=== PATIENT | female | born 2005 | race Caucasian/White ===

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

== ENCOUNTER 2024-12-04 14:43 | Emergency (ER) | payer OTHER, SELFPAY ==
[2024-12-04 15:01] VITALS: BP 104/73; PULSE 110; RESP 18; TEMP 38.4; O2SAT 99
--- NOTE | 2024-12-04 15:22 | ED_ITS ---
HPI - Nausea/Vomiting/Diarrhea General Chief complaint: Nausea/Vomiting/Diarrhea Stated complaint: body and hand pain Time Seen by Provider: 12/04/24 15:10 19-year-old female presents to [facility] complaining of nausea, vomiting and abdominal pain for 2 days. Patient reports having sharp abdominal pain primarily in the middle of her abdomen. Patient also reports having fevers and body aches. Patient says the only thing she has been able to keep down over the last couple days there is some applesauce. Patient says she is unable to keep fluids down. Patient last vomited approximately 5 hours ago. Patient denies any diarrhea and thought she was constipated and took a laxative couple days ago without any bowel movement. Patient denies any urinary symptoms. Patient has not taking kxyk-[id number]-[id number] at home to help with her symptoms. Patient believes she is dehydrated. Related Data Home Medications Medication Instructions Recorded Confirmed Last Taken Type levonorgestrel 14 mcg/24 hr (up to 1 device intrauterine ONCE 03/22/22 07/30/24 Unknown History 3 yrs) 13.5 mg intrauterine device (Erickson) Allergies Allergy/AdvReac Type Severity Reaction Status Date / Time clonazepam AdvReac Intermediate suicidal Verified 12/04/24 15:08 thoughts codeine AdvReac Intermediate Headache Verified 12/04/24 15:08 Penicillins AdvReac Rash Verified 12/04/24 15:08 Review of Systems Review of Systems: CONSTITUTIONAL: Positive for fever and body aches. Negative for chills, sweats. ENT: Denies rhinorrhea, congestion, sore throat, or otalgia. CARDIOVASCULAR: Denies chest pain, palpitations, or edema. RESPIRATORY: Denies cough or dyspnea. GASTROINTESTINAL: Denies bloody stools, diarrhea, hematochezia. Positive for n ausea, vomiting, and constipation. GENITOURINARY: Denies dysuria or hematuria. SKIN: Denies rash or itching. MUSCULOSKELETAL: Denies back pain, joint pain, or myalgia. NEUROLOGIC: Denies headache, numbness, or weakness. PSYCHIATRIC: Denies anxiety or depression. All other systems reviewed are negative, except as documented in HPI. [facility] Past Medical History Medical History ADHD Remove/insert IUD Encounter for screening examination for sexually transmitted disease Encounter for IUD insertion 01/23/19 erickson insertion Depression Anxiety UTI (urinary tract infection) Surgical History Surgical History History of gynecological procedure (03/22/22) Erickson iud removal and insertion Family History Family History Grandparent Breast cancer paternal grandmother Social History Social History Smoking status: Never smoker Alcohol intake: never Substance use: never Substance use type: does not use Do You Feel Safe in your Home?: Yes Lack of Transportation: No Lack of Food: Never True Current Housing: I Have Housing Concerned About Future Housing: No Difficulty Paying Gas/Electric Bills: Decline to Answer Difficulty Paying for Meds: Decline to Answer Currently Unemployed: No Education: High School Diploma/GED Difficulty w/ Childcare or Family Care: No Living arrangements: alone Occupation/Education: occupation Additional occupation/education comments: [employer] Gender identity (if verbalized by the patient): Female Sexual Orientation (if Verbalized by the Patient): Bisexual Exam Narrative: GENERAL: This is a well-nourished, well-developed adult, in no apparent distress. They are ill-appearing, nontoxic appearing. HEAD: normocephalic, atraumatic. EYES: Sclera clear/white. Vision is grossly intact. Conjunctiva normal bilaterally. Extraocular movements intact. EARS: External ears normal, auditory canals clear and without drainage, TMs without erythema or perforation. Hearing grossly intact. NOSE: External nose normal with no obvious nasal discharge, nasal turbinates without redness, no rhinorrhea. THROAT: Mucous membranes moist, posterior pharynx without erythema or exudate. Uvula is midline. NECK: Neck supple, non-tender without lymphadenopathy, masses or thyromegaly. CARDIOVASCULAR: Tachycardic rate and rhythm without murmurs, gallops, or rubs. RESPIRATORY: Clear to auscultation. Breath sounds equal bilaterally. No wheezes, rales, or rhonchi. GASTROINTESTINAL: Abdomen soft, flat, tender to palpation to the lower abdomen. Bowel sounds are active. No hepato-splenomegaly, or palpable masses. Patient is guarding her abdomen. No rebound tenderness. SKIN: warm, Dry, intact with no suspicious lesions or rash, good texture and turgor. NEURO: awake, alert, and oriented to person, place and time. There were no obvious focal neurologic abnormalities. EXTREMITIES: No joint tenderness, effusion, or edema noted. BACK: Nontender without deformity. No CVA tenderness. Course Course Emergency Course: Portions of this record may have been created with voice recognition software Level of Care: Express Care Visit Vital Signs Vital signs: Vital Signs Temperature 101.2 F H 12/04/24 15:01 Pulse Rate 110 H 12/04/24 15:01 Respiratory Rate 18 12/04/24 15:01 Blood Pressure 104/73 12/04/24 15:01 Pulse Oximetry 99 12/04/24 15:01 Temperature 101.2 F H 12/04/24 15:01 Pulse Rate 110 H 12/04/24 15:01 Respiratory Rate 18 12/04/24 15:01 Blood Pressure 104/73 12/04/24 15:01 Pulse Oximetry 99 12/04/24 15:01 Transfer Transfered to: [facility] Transportation: Other (Private vehicle) Transfer rationale: Abdominal pain, fever, nausea, vomiting, higher level care Accepting physician: Dr. Mcnulty MDM - Nausea/Vomiting/Diarrhea MDM Narrative Medical decision making narrative: Given patient's abdominal pain, uncontrolled nausea and vomiting, and fevers is recommended that the patient has sick higher level care in the emergency department for further evaluation and management. Patient is agreeable and would like to go to [facility]. Culture report over to [facility] and spoke with Dr. Mcnulty who is aware of this patient has accepted the patient for transfer. Patient advised to remain NPO and proceed immediately to the emergency department. Patient was given a dose of Zofran prior to leaving to help with nausea and vomiting. Differential Diagnosis Differential diagnosis: Likely gastroenteritis and other (Appendicitis, colitis, peritonitis) Discharge Plan Discharge Clinical Impression: Abdominal pain Qualifiers: Abdominal location: lower abdomen, unspecified Qualified Code(s): R10.30 - Lower abdominal pain, unspecified Nausea & vomiting Qualifiers: Vomiting type: unspecified Qualified Code(s): R11.2 - Nausea with vomiting, unspecified Patient Disposition: Acute Care Hospital Condition: Stable Patient Language: Estonian Prescriptions: No Action Erickson 14 mcg/24 hrs (3 yrs) 13.5 mg intrauterine device 1 device intrauterine ONCE Rx Instructions: as a single dose Follow-up/Referrals: PHYSICIAN,[employer] [Primary Care Provider] - Time of Disposition: 15:22
[2024-12-04] MEDS: ONDANSETRON HCL ODT 4 MG TABLET PO (15:26)
== END 2024-12-04 15:30 | disposition short-term general hospital (02) ==
DX: R10.30 Lower abdominal pain, unspecified (principal); R11.2 Nausea with vomiting, unspecified
CPT/HCPCS: 99213; A9270; G0463

== ENCOUNTER 2024-12-05 19:33 | Inpatient (IN) | payer OTHER, SELFPAY ==
--- NOTE | ~2024-12-05 | CT_ITS ---
CT abdomen pelvis w con Ordering provider: Janette Robertson APRN History: 19 years Female with . abdominal pain, fever . Comparison: None. Technique: CT abdomen and pelvis with IV and without oral contrast. Automated exposure control and it erative reconstruction technique were employed. The dose-length product was 178.61 mGy-cm. 100 mL Omn ipaque 350 was given IV. Findings: VISUALIZED LOWER CHEST: Normal. UPPER ABDOMINAL ORGANS: Liver: Normal. Gallbladder: Normal. Spleen: Normal. Stomach/duodenum: Normal. Pancreas: Normal. Adrenals: Normal. Kidneys: Bilateral hypodensities in the kidneys involving the cortex more on the left side suggestive of pyelonephritis. Clinical correlation advised. PELVIC ORGANS: The bladder is normal. IUD is seen in the uterus. BOWEL AND MESENTERY: Colon: No evidence of diverticulitis.. No evidence of appendicitis. Small Bowel: Normal. No obstruction. Peritoneum/mesentery: No free air or free fluid. No mesenteric lymphadenopathy. RETROPERITONEUM: Normal aorta. No retroperitoneal lymphadenopathy. MUSCULOSKELETAL: Superficial soft tissues: The superficial soft tissues are normal. Bones: Normal spine. IMPRESSION: 1. Bilateral pyelonephritis more on the left side. Follow-up and clinical correlation advised. 2. No evidence of appendicitis, diverticulitis or intestinal obstruction. Reviewed, dictated and finalized at location A. IMPRESSION: 1. Bilateral pyelonephritis more on the left side. Follow-up and clinical iris elation advised. 2. No evidence of appendicitis, diverticulitis or intestinal obstruction.
--- NOTE | ~2024-12-05 | XR_ITS ---
XR chest 2V Ordering provider: Cong Lara MD History: 19 years Female with . n/v/d weakness . Comparison: July 11, 2007 FINDINGS: MEDIASTINUM: The cardiac silhouette is not enlarged. LUNGS: No infiltrates, effusions or pneumothorax. OTHER: No free air under the diaphragm. IMPRESSION: No acute cardiopulmonary pathology. Reviewed, dictated and finalized at location A.
--- OUTSIDE RECORDS SUMMARY | 2024-12-05 19:36 | XMS_ITS | Encounter Summary ---
Author Organization [facility] Address [address] [place] [address] Care Team Providers Care Lathe Setup Operator Name Role Phone Apple Long MD Primary Care Provider Encounter Details Date Type Department Care Team (Late st Contact Info) Description 02/13/2006 Outpatient Historical [facility] [place] [address] [facility] [place] [address] Apple Long MD [address] [phone] Social History Tobacco Use Types Packs/Day Years Used Date Smoking Tobacco: Never Assessed Comments Unknown Sex and Gender Information Value Date Recorded Sex Assigned at Not on file Legal Sex Female 4:32 AM CUT OUT MARKER Gender Identity Not on file Sexual Orientation Not on file documented as of this encounter Plan of Treatment Not on file documented as of this encounter Visit Diagnoses Not on filedocumented in this encounter Care Teams Lathe Setup Operator Relationship Specialty Start Date End Date Apple Long MD PCP - General 04/01/08 documented as of this encounter
--- OUTSIDE RECORDS SUMMARY | 2024-12-05 19:36 | XMS_ITS | Encounter Summary ---
Author Organization [facility] Address [address] [place] [address] Care Team Providers Care Dirt Supervisor Name Role Phone Apple Long MD Primary Care Provider Encounter Details Date Type Department Care Team (Late st Contact Info) Description 07/05/2007 Outpatient Historical [facility] [place] [address] [facility] [place] [place] [address] Apple Long MD [address] [phone] Social History Tobacco Use Types Packs/Day Years Used Date Smoking Tobacco: Never Assessed Comments Unknown Sex and Gender Information Value Date Recorded Sex Assigned at Not on file Legal Sex Female 4:32 AM STORAGE CONSULTANT Gender Identity Not on file Sexual Orientation Not on file documented as of this encounter Plan of Treatment Not on file documented as of this encounter Visit Diagnoses Not on filedocumented in this encounter Care Teams Dirt Supervisor Relationship Specialty Start Date End Date Apple Long MD PCP - General 04/01/08 documented as of this encounter
--- OUTSIDE RECORDS SUMMARY | 2024-12-05 19:36 | XMS_ITS | Encounter Summary ---
Author Organization [facility] Address [address] [place] [address] Care Team Providers Care Aviation Engineer Name Role Phone Apple Long MD Primary Care Provider Encounter Details Date Type Department Care Team (Late st Contact Info) Description 01/11/2008 Outpatient Historical [facility] [place] [address] [facility] [place] [address] Nani Muhammad MD [address] [place] [phone] Social History Tobacco Use Types Packs/Day Years Used Date Smoking Tobacco: Never Assessed Comments Unknown Sex and Gender Information Value Date Recorded Sex Assigned at Not on file Legal Sex Female 4:32 AM COUNTER CUTTER Gender Identity Not on file Sexual Orientation Not on file documented as of this encounter Plan of Treatment Not on file documented as of this encounter Visit Diagnoses Not on filedocumented in this encounter Care Teams Aviation Engineer Relationship Specialty Start Date End Date Apple Long MD PCP - General 04/01/08 documented as of this encounter
--- OUTSIDE RECORDS SUMMARY | 2024-12-05 19:36 | XMS_ITS | Encounter Summary ---
Author Organization [facility] Address [address] [place]: [place] [address] Care Team Providers Care Electrical Engineering Technologist Name Role Phone Apple Long MD Primary Care Provider Encounter Details Date Type Department Care Team (Late st Contact Info) Description 01/11/2008 Outpatient Historical Apple Long MD [address] [phone] Social History Tobacco Use Types Packs/Day Years Used Date Smoking Tobacco: Never Assessed Comments Unknown Sex and Gender Information Value Date Recorded Sex Assigned at Not on file Legal Sex Female 4:32 AM MATERIALS HANDLING EQUIPMENT OPERATOR Gender Identity Not on file Sexual Orientation Not on file documented as of this encounter Plan of Treatment Not on file documented as of this encounter Visit Diagnoses Not on filedocumented in this encounter Care Teams Electrical Engineering Technologist Relationship Specialty Start Date End Date Apple Long MD PCP - General 04/01/08 documented as of this encounter
--- OUTSIDE RECORDS SUMMARY | 2024-12-05 19:36 | XMS_ITS | Encounter Summary ---
Author Organization [facility] Address [address] [place] [address] Care Team Providers Care Pneumatic Tester Mechanic Name Role Phone Apple Long MD Primary Care Provider Encounter Details Date Type Department Care Team (Late st Contact Info) Description 2004 Outpatient Historical [facility] [place] [address] [facility] [place] [address] Apple Long MD [address] [phone] Social History Tobacco Use Types Packs/Day Years Used Date Smoking Tobacco: Never Assessed Comments Unknown Sex and Gender Information Value Date Recorded Sex Assigned at Not on file Legal Sex Female 4:32 AM PIECE CUTTER Gender Identity Not on file Sexual Orientation Not on file documented as of this encounter Plan of Treatment Not on file documented as of this encounter Procedures Procedure Name Priority Date/Time Associated Diagnosis Comments CHG HEPATITIS B VACCINE PED ADOL IM 3 DOSE VFC 2004 12:00 AM PIECE CUTTER documented in this encounter Visit Diagnoses Not on filedocumented in this encounter Care Teams Pneumatic Tester Mechanic Relationship Specialty Start Date End Date Apple Long MD PCP - General 04/01/08 documented as of this encounter
--- OUTSIDE RECORDS SUMMARY | 2024-12-05 19:36 | XMS_ITS | Encounter Summary ---
Author Organization [facility] Address [address] [place] [address] Care Team Providers Care Author Name Role Phone Apple Long MD Primary Care Provider [phone] Encounter Details Date Type Department Care Team (Late st Contact Info) Description 2004 Outpatient Historical [facility] [place] [address] [place] [address] Apple Long MD [address] [phone] Social History Tobacco Use Types Packs/Day Years Used Date Smoking Tobacco: Never Assessed Comments Unknown Sex and Gender Information Value Date Recorded Sex Assigned at Not on file Legal Sex Female 4:32 AM IMMIGRATION ASSOCIATE Gender Identity Not on file Sexual Orientation Not on file documented as of this encounter Plan of Treatment Not on file documented as of this encounter Visit Diagnoses Not on filedocumented in this encounter Care Teams Author Relationship Specialty Start Date End Date Apple Long MD PCP - General 04/01/08 documented as of this encounter
--- OUTSIDE RECORDS SUMMARY | 2024-12-05 19:36 | XMS_ITS | Encounter Summary ---
Author Organization [facility] Address [address] [place] [address] Care Team Providers Care Forestry Farm Laborer Name Role Phone Apple Long MD Primary Care Provider Encounter Details Date Type Department Care Team (Late st Contact Info) Description 07/08/2005 Outpatient Historical [facility] Pediatric[facility] [place] [address] [facility] [place] [address] Apple Long MD [address] [phone] Social History Tobacco Use Types Packs/Day Years Used Date Smoking Tobacco: Never Assessed Comments Unknown Sex and Gender Information Value Date Recorded Sex Assigned at Not on file Legal Sex Female 4:32 AM SUPERVISOR SOLDER MAKING Gender Identity Not on file Sexual Orientation Not on file documented as of this encounter Last Filed Vital Signs Vital Sign Reading Time Taken Comments Blood Pressure - - Pulse - - Temperature - - Respiratory Rate - - Oxygen Saturation - - Inhaled Oxygen Concentration - - Weight 8.845 kg (19 lb 8 oz) 07/08/2005 3:00 PM SUPERVISOR SOLDER MAKING Height 69.2 cm (2' 3.25 ) 07/08/2005 3:00 PM SUPERVISOR SOLDER MAKING Kjdpxe-ags-Agjchi Percentile 86.18% 07/08/2005 3 :00 PM SUPERVISOR SOLDER MAKING Growth Chart: WHO (Girls, 0- 2 years) Head Circumference 455 cm 07/08/2005 3:00 PM SUPERVISOR SOLDER MAKING Head Circumference Percentile 100.00% 07/08/2005 3:00 PM SUPERVISOR SOLDER MAKING Growth Chart: WHO (Girls, 0- 2 years) Body Mass Index 18.46 07/08/2005 3:00 PM SUPERVISOR SOLDER MAKING Body Mass Index Percentile 89.34% 07/08/2005 3:0 0 PM SUPERVISOR SOLDER MAKING Growth Chart: WHO (Girls, 0- 2 years) documented in this encounter Plan of Treatment Not on file documented as of this encounter Procedures Procedure Name Priority Date/Time Associated Diagnosis Comments CHG HEPATITIS B VACCINE PED ADOL IM 3 DOSE VFC 07/08/2005 12:00 AM SUPERVISOR SOLDER MAKING CHG POLIOVIRUS IPV VFC 5 12:00 AM SUPERVISOR SOLDER MAKING CHG INFLUENZA VACCINE SPLIT 6-35 MO PF IM VFC 07/08/2005 12:00 AM SUPERVISOR SOLDER MAKING documented in this encounter Visit Diagnoses Not on filedocumented in this encounter Care Teams Forestry Farm Laborer Relationship Specialty Start Date End Date Apple Long MD PCP - General 04/01/08 documented as of this encounter
--- OUTSIDE RECORDS SUMMARY | 2024-12-05 19:36 | XMS_ITS | Encounter Summary ---
Author Organization [facility] Address [address] [place] [address] Care Team Providers Care Baby Stroller Rental Clerk Name Role Phone Apple Long MD Primary Care Provider Encounter Details Date Type Department Care Team (Late st Contact Info) Description [address] [facility] [place] [address] [facility] [place] [place] [address] Apple Long MD [address] [phone] Social History Tobacco Use Types Packs/Day Years Used Date Smoking Tobacco: Never Assessed Comments Unknown Sex and Gender Information Value Date Recorded Sex Assigned at Not on file Legal Sex Female 4:32 AM LICENSED AND CERTIFIED MIDWIFE Gender Identity Not on file Sexual Orientation Not on file documented as of this encounter Plan of Treatment Not on file documented as of this encounter Visit Diagnoses Not on filedocumented in this encounter Care Teams Baby Stroller Rental Clerk Relationship Specialty Start Date End Date Apple Long MD PCP - General 04/01/08 documented as of this encounter
--- OUTSIDE RECORDS SUMMARY | 2024-12-05 19:36 | XMS_ITS | Encounter Summary ---
Author Organization [facility] Address [address] [place] [address] Care Team Providers Care Cash Poster Name Role Phone Apple Long MD Primary Care Provider [phone] Encounter Details Date Type Department Care Team (Late st Contact Info) Description 01/11/2005 Outpatient Historical [facility] [place] [address] [facility] [place] [place] [address] Apple Long MD [address] [phone] Social History Tobacco Use Types Packs/Day Years Used Date Smoking Tobacco: Never Assessed Comments Unknown Sex and Gender Information Value Date Recorded Sex Assigned at Not on file Legal Sex Female 4:32 AM WELL SERVICE FLOOR WORKER Gender Identity Not on file Sexual Orientation Not on file documented as of this encounter Plan of Treatment Not on file documented as of this encounter Procedures Procedure Name Priority Date/Time Associated Diagnosis Comments CHG POLIOVIRUS IPV VFC 01/11/2005 12:00 AM CDT documented in this encounter Visit Diagnoses Not on filedocumented in this encounter Care Teams Cash Poster Relationship Specialty Start Date End Date Apple Long MD PCP - General 04/01/08 documented as of this encounter
--- OUTSIDE RECORDS SUMMARY | 2024-12-05 19:36 | XMS_ITS | Encounter Summary ---
Author Organization [facility] Address [address] [place] [address] Care Team Providers Care Livestock Agent Name Role Phone Apple Long MD Primary Care Provider Encounter Details Date Type Department Care Team (Late st Contact Info) Description 06/29/2005 Outpatient Historical [facility] [place] [address] [facility] [place] [address] Apple Long MD [address] [phone] Social History Tobacco Use Types Packs/Day Years Used Date Smoking Tobacco: Never Assessed Comments Unknown Sex and Gender Information Value Date Recorded Sex Assigned at Not on file Legal Sex Female 4:32 AM EXTRUDING MACHINE OPERATOR Gender Identity Not on file Sexual Orientation Not on file documented as of this encounter Plan of Treatment Not on file documented as of this encounter Visit Diagnoses Not on filedocumented in this encounter Care Teams Livestock Agent Relationship Specialty Start Date End Date Apple Long MD PCP - General 04/01/08 documented as of this encounter
--- OUTSIDE RECORDS SUMMARY | 2024-12-05 19:36 | XMS_ITS | Encounter Summary ---
Author Organization [facility] Address [address] [place] [address] Care Team Providers Care Engineering Inspection Assistant Name Role Phone Apple Long MD Primary Care Provider Encounter Details Date Type Department Care Team (Late st Contact Info) Description 04/18/2005 Outpatient Historical [facility] [place] [address] [facility] [place] [address] Apple Long MD [address] [phone] Social History Tobacco Use Types Packs/Day Years Used Date Smoking Tobacco: Never Assessed Comments Unknown Sex and Gender Information Value Date Recorded Sex Assigned at Not on file Legal Sex Female 4:32 AM ASSISTED LIVING ADMINISTRATOR Gender Identity Not on file Sexual Orientation Not on file documented as of this encounter Plan of Treatment Not on file documented as of this encounter Visit Diagnoses Not on filedocumented in this encounter Care Teams Engineering Inspection Assistant Relationship Specialty Start Date End Date Apple Long MD PCP - General 04/01/08 documented as of this encounter
--- OUTSIDE RECORDS SUMMARY | 2024-12-05 19:36 | XMS_ITS | Clinical Summary ---
Author Organization [facility] Address [address] [place] [address] Care Team Providers Care Systems Test Technician Name Role Phone Cass Rodriguez MD Primary Care Provider [phone] Dayna Gonzalez MD Unavailable Molly Silverio Unavailable [phone] Source Comments [facility],non-owned Affiliates and Associated Physician Practices is amultiple site organization consisting of ambulatory clinics and hospital sitesin [place], [place], [place] and [place]. This disclosure is being madepursuant to the Care Everywhere program and may not contain all information available regarding this patient. Last updated 18.[facility] Allergies Active Allergy Reactions Criticality Noted Date Comments Codeine Headache 02/22/2023 migranies Penicillins Rash Medium 02/22/2023 Patient has never taken. Family said has bad reactions Medications * This document contains information received from the source organization and may not represent a complete record from that organization. * Be aware that medications may not be up to date on this document. Alwaysverify current medications with the patient. IUD'S IU Active fluticasone propionate (Flonase) 50 MCG/ACT nasal sprayIndication s:Fluid level behind tympanic membrane of both ears Feura Bush 1 (one) spray into each nostril 2 times daily 16 g 04/15/2024 Active buPROPion SR 12hr (Wellbutrin-SR) 100 MG tablet Take 1 (one) tablet by mouth 2 times daily 04/10/2024 Active hydrOXYzine pamoate (Vistaril) 25 MG capsule TAKE 1 CAPSULE BY MOUTH TWICE DAILY NEEDED FOR ANXIETY 03/04/2024 Active naloxone HCl (Narcan) 4 MG/0.1ML nasal spray SPRAY 2 SPRAYS INTO THE NOSE NEEDED FOR OPIOID OVERDOSE 2 Each 11/02/2024 Active Active Problems Problem Noted Date Diagnosed Date Cluster B personality disorder 11/02/2023 WIL (generalized anxiety disorder) 07/06/2023 Moderate episode of recurrent major depressive d isorder 07/06/2023 Recurrent UTI 02/22/2023 Overview (02/22/2023): Every 3-4 months; not always with sex activity; can be with menses, gets better with azo Attention deficit hyperactiv ity disorder (ADHD), predominantly inattentive type 02/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 Questions solicited and answered. 2. Continue with existing conservative treatment program. 3. Medications Prescribed: none 4. Activity Restrictions: none 5. Weightbearing status: No Restrictions Follow up: Telemedicine visit in 3 months Resolved Problems Problem Noted Date Diagnosed Date Resolved Date Left elbow pain 08/30/2018 02/22/2023 Bilateral wrist pain 08/30/2018 024 Elbow injury, left, initial encounter 10/05/2017 02/22/2023 Encounters Date Type Department Care Team Description 11/01/[address] [facility] [address] [place] [address] Suzie Barreto, COVER OPERATOR-GRINDER SET UP OPERATOR THREAD Refill Request from Last 3 Months Immunizations Immunization Administration Dates Next Due INFLUENZA VACCINE, TRIV. (AF LURIA, FLUZONE TRIVALENT; 6MO+) (IIV3) 07/08/2005 DTAP, HISTORIC VACCINE 12/11/2009,2005,03/22/2005,01/11,2004 HEP A PED/ADULT VACCINE 02/20/2019,01/31/2007, HEP B VACCINE 07/08/2005,01/11/2005 HEP B VACCINE, PED/ADOL 03/22/2005,2004 HIB-PRP-T 4 DOSE 02/13/2006, 5,01/11/2005,10/07 Human Papilloma Virus Abram valent Vaccine 08/13/2018,02/07/2018 INFLUENZA VACCINE 04/12/2018 MENINGOCOCCAL ACWY (MCV4P) VAC IM 02/24/2016 MMR VACCINE 12/10/2009,02/13/2006 MMR/VARICELLA 12/11/2009,02/13/2006 Meningococcal ACWY (Menquadfi) Vac IM 05/05/2022 Meningococcal B Recombinant 2 Dose, IM 3,09/22/2022 PNEUMOCOCCAL PCV7 CONJ, PEDS 02/13/2006, 03/22/2005,01/11/2005,10/07 POLIO IPV 07/08/2005 POLIO,HISTORIC VACCINE 12/11/2009,01/11/2005, TDAP, HISTORIC VACCINE 01/06/2023,11/13/2017,09/2015 VARICELLA 12/10/2009,02/13/2006 Family History Medical History Relation Name Comments Other - Cardiac Father irregular he artbeat None Known Maternal Grandfather None Known Maternal Grandmother Migraine Mother None Known Paternal Grandfather Autism Spectrum Disorder Paternal Grandmother Cancer Paternal Grandmother Autism Spectrum Disorder Paternal Uncle None Known Sister Relation Name Status Comments Father Alive Maternal Grandfather Alive Maternal Grandmother Alive Mother Alive Paternal Grandfather Alive Paternal Grandmother Alive Paternal Uncle Alive Sister Alive Social History Tobacco Use Types Packs/Day Years Used Date Smoking Tobacco: Every Day Cigarettes Passive Smoke Exposure: Current Smokeless Tobacco: Never Tobacco Cessation:Ready to Q uit: Not Asked; Counseling Given: Not Answered Alcohol Use Standard Drinks/Week Comments Yes 0 (1 standard drink = 0.6 oz pur e alcohol) socially/ weekly PHQ-2 Answer Date Recorded Patient Health Questionnaire-2 Score 5 12/20/2023 Comments No Sex and Gender Information Value Date Recorded Sex Assigned at Female 02/22/2023 3:48 PM CDT Legal Sex Female 3:43 PM STRETCH BOX TENDER Gender Identity Female 02/22/2023 3:48 PM CDT Sexual Orientation Not on file Last Filed Vital Signs Vital Sign Reading Time Taken Comments Blood Pressure 114/60 07/03/2024 8:50 AM STRETCH BOX TENDER Pulse 74 07/03/2024 8:50 AM STRETCH BOX TENDER Temperature 36.3 C (97.4 F) 07/03/2024 8:50 AM STRETCH BOX TENDER Respiratory Rate 18 07/03/2024 8:50 AM STRETCH BOX TENDER Oxygen Saturation 98% 07/03/2024 8:50 AM STRETCH BOX TENDER Inhaled Oxygen Concentration - - Weight 50.8 kg (112 lb) 07/03/2024 8:50 AM STRETCH BOX TENDER Height 154.9 cm (5' 1 ) 07/03/2024 8:50 AM STRETCH BOX TENDER Body Mass Index 21.16 07/03/2024 8:50 AM STRETCH BOX TENDER Plan of Treatment Health Maintenance Due Date Last Done Comments PNEUMOCOCCAL VACCINE (1 of 1 - PPSV23) 2010 02/13/2006, 03/22/2005, 01/11/2005, Additional history exists HIV SCREENING 2019 COVID-19 VACCINE (2023-2 5 season) 2024 09/19/2021, 01/13/2021, 12/23/2020 DEPRESSION SCREENING 07/24/2024 09/05/2023, 06/12/20 23 CHLAMYDIA/GONORRHEA SCREENING 09/07/2024 09/07/2023 INFLUENZA VACCINE (Season Ended) 2025 04/12/20 18, 07/08/2005 DTAP/TDAP/TD VACCINES (9 - T d or Tdap) 01/06/2033 01/06/2023, 11/13/2017, 02/24/2016, Additional history exists ZOSTER VACCINE (1 of 2) 2054 HEPATITIS B VACCINE Completed 07/08/2005, 03/22/2005, 01/11/2005, Additional history exists HIB VACCINE Completed 02/13/2006, 02/23, 01/11/2005, Additional history exists HPV VACCINE Completed 08/13/2018, 02/07/2018 MENINGOCOCCAL GROUPS A/C/Y/W VACCINE Completed 05/05/2022, 02/24/2016 MENINGOCOCCAL (Group B) VACC INE SHARED DECISION-MAKING Completed 12/13/2022, 09/22/2022 HEPATITIS C SCREENING Completed 06/12/2023 Procedures Procedure Name Priority Date/Time Associated Diagnosis Comments CHLAMYDIA + GC AMPLIFIED PROBE Routine 09/07/2023 1:00 PM STRETCH BOX TENDER Dysuria HEPATITIS C AB W/RFLX TO HCV RNA QN PCR 06/12/2023 3:00 PM STRETCH BOX TENDER Elevated liver enzymes from Last 3 Months or Most Recently Relevant to Health Maintenance Results * CHLAMYDIA + GC AMPLIFIED PROBE (09/07/2023 1:00 PM STRETCH BOX TENDER) Chlamydia RENETTA Urine Negative Negative [facility] INSURANCE BILL GC R[place] Urine Negative Negative [facility] INSURANCE BILL Microbiology ENTIRE VAGINA / Unknown 09/07/2023 1:00 PM STRETCH BOX TENDER 09/07/2023 Narrative Resulting Agency Comment Lab Testing performed at: [address] [id number] Suzie Barreto COVER OPERATOR-GRINDER SET UP OPERATOR THREAD LAB - MICROBIOLOGY ORDER MISSY Final Result [facility] INSURANCE BILL [address] [place] [address] * HEPATITIS C AB W/RFLX TO HCV RNA QN PCR (06/12/2023 3:00 PM STRETCH BOX TENDER) Hepatitis C Antibody NON-REACTI VE NON-REACT [facility] Comment: HCV antibody was non-reactive. There is no laboratory evidence of HCV infection. In most cases, no further action is required. However, if recent HCV exposure is suspected, a test for HCV RNA (test code 28999) is suggested. For additional information please refer to http://education.[employer]/faq/BXD87b0 (This link is being provided for informational/ educational purposes only.) NO COLLECTION DATE RECEIVED. WE HAVE USED THE DATE THE SPECIMEN WAS RECEIVED BY THIS LABORATORY THE COLLECTION DATE. IF THIS IS INCORRECT, PLEASE CONTACT CLIENT SERVICES. PHONE NUMBER: [phone] Test Performed at: [facility] [address] [address] MELISSA QUIROZ MD 06/12/2023 6:4 1 AM STRETCH BOX TENDER us Babak Frost III, MD LAB - CHEMISTRY ORDER MISSY Final Result [facility] [address] [place] [address] from Last 3 Months or Most Recently Relevant to Health Maintenance Insurance CIG Care Teams Systems Test Technician Relationship Specialty Start Date End Date Cass Rodriguez MD [address] [facility] [address] [facility] [place] [address] PCP - General Internal Medicine 02/22/23 Dayna Gonzalez MD [address] [address] [place] [address] Pediatrics 02/22/23 Molly Silverio PA [address] [place] [phone] [phone] (Work) Physician Entertainment Dancer 08/30/19
--- OUTSIDE RECORDS SUMMARY | 2024-12-05 19:36 | XMS_ITS | Encounter Summary ---
Author Organization [facility] Address [address] [place] [address] Care Team Providers Care Space Control Agent Name Role Phone Apple Long MD Primary Care Provider [phone] Encounter Details Date Type Department Care Team (Late st Contact Info) Description 01/11/2005 Outpatient Historical [facility] [place] [address] [facility] [place] [address] Apple Long MD [address] [address] Social History Tobacco Use Types Packs/Day Years Used Date Smoking Tobacco: Never Assessed Comments Unknown Sex and Gender Information Value Date Recorded Sex Assigned at Not on file Legal Sex Female 4:32 AM MANAGER ACTION Gender Identity Not on file Sexual Orientation Not on file documented as of this encounter Plan of Treatment Not on file documented as of this encounter Procedures Procedure Name Priority Date/Time Associated Diagnosis Comments CHG DTAP VACCINE <7 YO IM VFC 01/11/2005 12:00 AM CDT CHG PNEUMOCOCCAL VACCINE <5 YO IM VFC 01/11/2005 12:00 AM CDT CHG HIB PRP-T VACCINE IM 4 DOSE VFC 01/11/2005 12:00 AM CDT documented in this encounter Visit Diagnoses Not on filedocumented in this encounter Care Teams Space Control Agent Relationship Specialty Start Date End Date Apple Long MD PCP - General 04/01/08 documented as of this encounter
--- OUTSIDE RECORDS SUMMARY | 2024-12-05 19:36 | XMS_ITS | Encounter Summary ---
Author Organization [facility] Address [address] [place] [address] Care Team Providers Care Authorization Rep Name Role Phone Apple Long MD Primary Care Provider [phone] Encounter Details Date Type Department Care Team (Late st Contact Info) Description 03/22/2005 Outpatient Historical [facility] Pediatric[facility] [place] [address] [place] [address] Apple Long MD [address] [address] Social History Tobacco Use Types Packs/Day Years Used Date Smoking Tobacco: Never Assessed Comments Unknown Sex and Gender Information Value Date Recorded Sex Assigned at Not on file Legal Sex Female 4:32 AM QUALITY ASSURANCE SUPERVISOR Gender Identity Not on file Sexual Orientation Not on file documented as of this encounter Plan of Treatment Not on file documented as of this encounter Procedures Procedure Name Priority Date/Time Associated Diagnosis Comments CHG PNEUMOCOCCAL VACCINE <5 YO IM VFC 03/22/2005 12:00 AM CDT documented in this encounter Visit Diagnoses Not on filedocumented in this encounter Care Teams Authorization Rep Relationship Specialty Start Date End Date Apple Long MD PCP - General 9/9/08 documented as of this encounter
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
--- OUTSIDE RECORDS SUMMARY | 2024-12-05 19:36 | XMS_ITS | Encounter Summary ---
Author Organization [facility] Address [address] [place] [address] Care Team Providers Care Senior Oracle Dba Name Role Phone Apple Long MD Primary Care Provider [phone] Encounter Details Date Type Department Care Team (Late st Contact Info) Description 02/13/2006 Outpatient Historical [facility] Pediatrics [place] [address] [facility] [place] [address] Apple Long MD [address] [phone] Social History Tobacco Use Types Packs/Day Years Used Date Smoking Tobacco: Never Assessed Comments Unknown Sex and Gender Information Value Date Recorded Sex Assigned at Not on file Legal Sex Female 4:32 AM BABY STROLLER RENTAL CLERK Gender Identity Not on file Sexual Orientation Not on file documented as of this encounter Plan of Treatment Not on file documented as of this encounter Visit Diagnoses Not on filedocumented in this encounter Care Teams Senior Oracle Dba Relationship Specialty Start Date End Date Apple Long MD PCP - General 04/01/08 documented as of this encounter
--- OUTSIDE RECORDS SUMMARY | 2024-12-05 19:36 | XMS_ITS | Encounter Summary ---
Author Organization [facility] Address [address] [place] [address] Care Team Providers Care Technical Services Coordinator Name Role Phone Apple Long MD Primary Care Provider [phone] Encounter Details Date Type Department Care Team (Late st Contact Info) Description 2004 Outpatient Historical [facility] Pediatrics [place] [address] [facility] [place] [address] Apple Long MD [address] [address] Social History Tobacco Use Types Packs/Day Years Used Date Smoking Tobacco: Never Assessed Comments Unknown Sex and Gender Information Value Date Recorded Sex Assigned at Not on file Legal Sex Female 4:32 AM LAND SURVEYOR Gender Identity Not on file Sexual Orientation Not on file documented as of this encounter Plan of Treatment Not on file documented as of this encounter Procedures Procedure Name Priority Date/Time Associated Diagnosis Comments CHG POLIOVIRUS IPV VFC 2004 12:00 AM LAND SURVEYOR documented in this encounter Visit Diagnoses Not on filedocumented in this encounter Care Teams Technical Services Coordinator Relationship Specialty Start Date End Date Apple Long MD PCP - General 04/01/08 documented as of this encounter
--- OUTSIDE RECORDS SUMMARY | 2024-12-05 19:36 | XMS_ITS | Encounter Summary ---
Author Organization [facility] Address [address] [place] [address] Care Team Providers Care Mechanic'S Assistant Name Role Phone Apple Long MD Primary Care Provider [phone] Encounter Details Date Type Department Care Team (Late st Contact Info) Description 2004 Outpatient Historical [facility] Pediatrics [place] [address] [facility] [place] [address] [place] [address] [facility] [address] [place] [address] Social History Tobacco Use Types Packs/Day Years Used Date Smoking Tobacco: Never Assessed Comments Unknown Sex and Gender Information Value Date Recorded Sex Assigned at Not on file Legal Sex Female 4:32 AM PARTS COUNTERPERSON Gender Identity Not on file Sexual Orientation Not on file documented as of this encounter Plan of Treatment Not on file documented as of this encounter Visit Diagnoses Not on filedocumented in this encounter Care Teams Mechanic'S Assistant Relationship Specialty Start Date End Date Apple Long MD PCP - General 04/01/08 documented as of this encounter
--- OUTSIDE RECORDS SUMMARY | 2024-12-05 19:36 | XMS_ITS | Encounter Summary ---
Author Organization [facility] Address [address] [place] [address] Care Team Providers Care Naval Marine Engineer Name Role Phone Apple Long MD Primary Care Provider Encounter Details Date Type Department Care Team (Late st Contact Info) Description 2004 Outpatient Historical [facility] Pediatric[facility] [place] [address] [facility] [place] [address] Apple Long MD [address] [phone] Social History Tobacco Use Types Packs/Day Years Used Date Smoking Tobacco: Never Assessed Comments Unknown Sex and Gender Information Value Date Recorded Sex Assigned at Not on file Legal Sex Female 4:32 AM RUBBER GOODS REPAIRER Gender Identity Not on file Sexual Orientation Not on file documented as of this encounter Plan of Treatment Not on file documented as of this encounter Visit Diagnoses Not on filedocumented in this encounter Care Teams Naval Marine Engineer Relationship Specialty Start Date End Date Apple Long MD PCP - General 04/01/08 documented as of this encounter
--- OUTSIDE RECORDS SUMMARY | 2024-12-05 19:36 | XMS_ITS | Encounter Summary ---
Author Organization [facility] Address [address] [place] [address] Care Team Providers Care Draw Fire Operator Name Role Phone Apple Long MD Primary Care Provider Encounter Details Date Type Department Care Team (Late st Contact Info) Description 07/05/2007 Outpatient Historical [facility] Pediatrics [place] [address] [facility] [place] [address] Apple Long MD [address] [phone] Social History Tobacco Use Types Packs/Day Years Used Date Smoking Tobacco: Never Assessed Comments Unknown Sex and Gender Information Value Date Recorded Sex Assigned at Not on file Legal Sex Female 4:32 AM DIRECTOR RETIREMENT Gender Identity Not on file Sexual Orientation Not on file documented as of this encounter Plan of Treatment Not on file documented as of this encounter Visit Diagnoses Not on filedocumented in this encounter Care Teams Draw Fire Operator Relationship Specialty Start Date End Date Apple Long MD PCP - General 04/01/08 documented as of this encounter
--- OUTSIDE RECORDS SUMMARY | 2024-12-05 19:36 | XMS_ITS | Encounter Summary ---
Author Organization [facility] Address [address] [place] [address] Care Team Providers Care Flagsetter Name Role Phone Apple Long MD Primary Care Provider Encounter Details Date Type Department Care Team (Late st Contact Info) Description 2004 Outpatient Historical [facility] Pediatrics [place] [address] [facility] [place] [address] Apple Long MD [address] [phone] Social History Tobacco Use Types Packs/Day Years Used Date Smoking Tobacco: Never Assessed Comments Unknown Sex and Gender Information Value Date Recorded Sex Assigned at Not on file Legal Sex Female 4:32 AM DIRECTOR PATIENT Gender Identity Not on file Sexual Orientation Not on file documented as of this encounter Plan of Treatment Not on file documented as of this encounter Procedures Procedure Name Priority Date/Time Associated Diagnosis Comments CHG DTAP VACCINE <7 YO IM VFC 2004 12:00 AM DIRECTOR PATIENT CHG PNEUMOCOCCAL VACCINE <5 YO IM VFC 2004 12:00 AM DIRECTOR PATIENT CHG HIB PRP-T VACCINE IM 4 DOSE VFC 2004 12:00 AM DIRECTOR PATIENT documented in this encounter Visit Diagnoses Not on filedocumented in this encounter Care Teams Flagsetter Relationship Specialty Start Date End Date Apple Long MD PCP - General 04/01/08 documented as of this encounter
--- OUTSIDE RECORDS SUMMARY | 2024-12-05 19:36 | XMS_ITS | Encounter Summary ---
Author Organization [facility] Address [address] [place] [address] Care Team Providers Care Ferry Terminal Supervisor Name Role Phone Apple Long MD Primary Care Provider Encounter Details Date Type Department Care Team (Late st Contact Info) Description 06/08/2006 Outpatient Historical [facility] Pediatrics [place] [address] [facility] [place] [address] Apple Long MD [address] [phone] Social History Tobacco Use Types Packs/Day Years Used Date Smoking Tobacco: Never Assessed Comments Unknown Sex and Gender Information Value Date Recorded Sex Assigned at Not on file Legal Sex Female 4:32 AM LAB ANALYST Gender Identity Not on file Sexual Orientation Not on file documented as of this encounter Plan of Treatment Not on file documented as of this encounter Visit Diagnoses Not on filedocumented in this encounter Care Teams Ferry Terminal Supervisor Relationship Specialty Start Date End Date Apple Long MD PCP - General 04/01/08 documented as of this encounter
--- OUTSIDE RECORDS SUMMARY | 2024-12-05 19:36 | XMS_ITS | Encounter Summary ---
Author Organization [facility] Address [address] [place] [address] Care Team Providers Care Credit Analyst Name Role Phone Apple Long MD Primary Care Provider [phone] Encounter Details Date Type Department Care Team (Late st Contact Info) Description 05/07/2007 Outpatient Historical [facility] [place] [address] [facility] [place] [address] Apple Long MD [address] [address] Social History Tobacco Use Types Packs/Day Years Used Date Smoking Tobacco: Never Assessed Comments Unknown Sex and Gender Information Value Date Recorded Sex Assigned at Not on file Legal Sex Female 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 ASSISTANT Gender Identity Not on file Sexual Orientation Not on file documented as of this encounter Last Filed Vital Signs Vital Sign Reading Time Taken Comments Blood Pressure - - Pulse - - Temperature 37.4 C (99.3 F) 05/07/2007 3:05 PM CDT Respiratory Rate - - Oxygen Saturation - - Inhaled Oxygen Concentration - - Weight - - Height - - Body Mass Index - - documented in this encounter Plan of Treatment Not on file documented as of this encounter Visit Diagnoses Not on filedocumented in this encounter Care Teams Credit Analyst Relationship Specialty Start Date End Date Apple Long MD PCP - General 04/01/08 documented as of this encounter
--- OUTSIDE RECORDS SUMMARY | 2024-12-05 19:36 | XMS_ITS | Encounter Summary ---
Author Organization [facility] Address [address] [place] [address] Care Team Providers Care Director Volunteer Services Name Role Phone Apple Long MD Primary Care Provider [phone] Encounter Details Date Type Department Care Team (Late st Contact Info) Description 2004 Outpatient Historical [facility] Pediatric[facility] [place] [address] [facility] [place] [address] Apple Long MD [address] [phone] Social History Tobacco Use Types Packs/Day Years Used Date Smoking Tobacco: Never Assessed Comments Unknown Sex and Gender Information Value Date Recorded Sex Assigned at Not on file Legal Sex Female 4:32 AM RN SCHOOL Gender Identity Not on file Sexual Orientation Not on file documented as of this encounter Plan of Treatment Not on file documented as of this encounter Visit Diagnoses Not on filedocumented in this encounter Care Teams Director Volunteer Services Relationship Specialty Start Date End Date Apple Long MD PCP - General 04/01/08 documented as of this encounter
--- OUTSIDE RECORDS SUMMARY | 2024-12-05 19:36 | XMS_ITS | Encounter Summary ---
Author Organization [facility] Address [address] [place] [address] Care Team Providers Care Appliquer Zigzag Name Role Phone Apple Long MD Primary Care Provider Encounter Details Date Type Department Care Team (Late st Contact Info) Description 03/22/2005 Outpatient Historical [facility] Pediatrics [place] [address] [facility] [place] [address] Apple Long MD [address] [address] Social History Tobacco Use Types Packs/Day Years Used Date Smoking Tobacco: Never Assessed Comments Unknown Sex and Gender Information Value Date Recorded Sex Assigned at Not on file Legal Sex Female 4:32 AM STUCCO APPLICATOR Gender Identity Not on file Sexual Orientation Not on file documented as of this encounter Plan of Treatment Not on file documented as of this encounter Procedures Procedure Name Priority Date/Time Associated Diagnosis Comments CHG HEPATITIS B VACCINE PED ADOL IM 3 DOSE VFC 03/22/2005 12:00 AM CDT CHG DTAP VACCINE <7 YO IM VFC 03/22/2005 12:00 AM CDT CHG HIB PRP-T VACCINE IM 4 DOSE VFC 03/22/2005 12:00 AM CDT documented in this encounter Visit Diagnoses Not on filedocumented in this encounter Care Teams Appliquer Zigzag Relationship Specialty Start Date End Date Apple Long MD PCP - General 04/01/08 documented as of this encounter
--- OUTSIDE RECORDS SUMMARY | 2024-12-05 19:37 | XMS_ITS | Encounter Summary ---
Author Organization [facility] Address [address] [place] [address] Care Team Providers Care General Distillery Worker Name Role Phone Apple Long MD Primary Care Provider Encounter Details Date Type Department Care Team (Late st Contact Info) Description 12/07/2005 Outpatient Historical [facility] Pediatrics [place] [address] [facility] [place] [address] Apple Long MD [address] [phone] Social History Tobacco Use Types Packs/Day Years Used Date Smoking Tobacco: Never Assessed Comments Unknown Sex and Gender Information Value Date Recorded Sex Assigned at Not on file Legal Sex Female 4:32 AM SPEECH AND LANGUAGE SPECIALIST Gender Identity Not on file Sexual Orientation Not on file documented as of this encounter Plan of Treatment Not on file documented as of this encounter Visit Diagnoses Not on filedocumented in this encounter Care Teams General Distillery Worker Relationship Specialty Start Date End Date Apple Long MD PCP - General 04/01/08 documented as of this encounter
--- OUTSIDE RECORDS SUMMARY | 2024-12-05 19:37 | XMS_ITS | Encounter Summary ---
Author Organization [facility] Address [address] [place] [address] Care Team Providers Care Department Chairperson Name Role Phone Apple Long MD Primary Care Provider [phone] Encounter Details Date Type Department Care Team (Late st Contact Info) Description 01/31/2007 Outpatient Historical [facility] Pediatrics [place] [address] [facility] [place] [address] Apple Long MD [address] [phone] Social History Tobacco Use Types Packs/Day Years Used Date Smoking Tobacco: Never Assessed Comments Unknown Sex and Gender Information Value Date Recorded Sex Assigned at Not on file Legal Sex Female 4:32 AM DISCHARGE SPECIALIST Gender Identity Not on file Sexual Orientation Not on file documented as of this encounter Last Filed Vital Signs Vital Sign Reading Time Taken Comments Blood Pressure - - Pulse - - Temperature - - Respiratory Rate - - Oxygen Saturation - - Inhaled Oxygen Concentration - - Weight 11.9 kg (26 lb 2 oz) 01/31/2007 10:30 AM CDT Height 85.7 cm (2' 9.75 ) 01/31/2007 10:30 AM CD T Hisbbp-ify-Jmhfyo Percentile 42.85% 01/31/2007 1 0:30 AM CDT Growth Chart: CDC (Girls, 2- 20 Years) Head Circumference 48.7 cm 01/31/2007 10:30 AM CD T Head Circumference Percentile 65.69% 01/31/2007 10:30 AM CDT Growth Chart: CDC (Girls, 0- 36 Months) Body Mass Index 16.13 01/31/2007 10:30 AM CDT Body Mass Index Percentile 52.29% 01/31/2007 10: 30 AM CDT Growth Chart: [facility] (Girls, 2- 20 Years) documented in this encounter Plan of Treatment Not on file documented as of this encounter Visit Diagnoses Not on filedocumented in this encounter Care Teams Department Chairperson Relationship Specialty Start Date End Date Apple Long MD PCP - General 04/01/08 documented as of this encounter
--- OUTSIDE RECORDS SUMMARY | 2024-12-05 19:37 | XMS_ITS | Encounter Summary ---
Author Organization [facility] Address [address] [place] [address] Care Team Providers Care Head Up Operator Helper Name Role Phone Apple Long MD Primary Care Provider [phone] Encounter Details Date Type Department Care Team (Late st Contact Info) Description 09/08/2005 Outpatient Historical [facility] Pediatrics [place] [address] [facility] [place] [address] Apple Long MD [address] [phone] Social History Tobacco Use Types Packs/Day Years Used Date Smoking Tobacco: Never Assessed Comments Unknown Sex and Gender Information Value Date Recorded Sex Assigned at Not on file Legal Sex Female 4:32 AM BOBBIN CLEANER HAND Gender Identity Not on file Sexual Orientation Not on file documented as of this encounter Plan of Treatment Not on file documented as of this encounter Visit Diagnoses Not on filedocumented in this encounter Care Teams Head Up Operator Helper Relationship Specialty Start Date End Date Apple Long MD PCP - General 04/01/08 documented as of this encounter
--- OUTSIDE RECORDS SUMMARY | 2024-12-05 19:37 | XMS_ITS | Encounter Summary ---
Author Organization [facility] Address [address] [place] [address] Care Team Providers Care Utility Driver Name Role Phone Apple Long MD Primary Care Provider [phone] Encounter Details Date Type Department Care Team (Late st Contact Info) Description 02/02/2006 Outpatient Historical [facility] Pediatrics [place] [address] [facility] [place] [address] Apple Long MD [address] [phone] Social History Tobacco Use Types Packs/Day Years Used Date Smoking Tobacco: Never Assessed Comments Unknown Sex and Gender Information Value Date Recorded Sex Assigned at Not on file Legal Sex Female 4:32 AM TEST DESKMAN Gender Identity Not on file Sexual Orientation Not on file documented as of this encounter Plan of Treatment Not on file documented as of this encounter Visit Diagnoses Not on filedocumented in this encounter Care Teams Utility Driver Relationship Specialty Start Date End Date Apple Long MD PCP - General 04/01/08 documented as of this encounter
--- OUTSIDE RECORDS SUMMARY | 2024-12-05 19:37 | XMS_ITS | Encounter Summary ---
Author Organization [facility] Address [address] [place] [address] Care Team Providers Care Plant Tour Guide Name Role Phone Apple Long MD Primary Care Provider [phone] Encounter Details Date Type Department Care Team (Late st Contact Info) Description 09/26/2005 Outpatient Historical [facility] Pediatrics [place] [address] [facility] [place] [address] Apple Long MD [address] [phone] Social History Tobacco Use Types Packs/Day Years Used Date Smoking Tobacco: Never Assessed Comments Unknown Sex and Gender Information Value Date Recorded Sex Assigned at Not on file Legal Sex Female 4:32 AM CLAY MINER Gender Identity Not on file Sexual Orientation Not on file documented as of this encounter Plan of Treatment Not on file documented as of this encounter Visit Diagnoses Not on filedocumented in this encounter Care Teams Plant Tour Guide Relationship Specialty Start Date End Date Apple Long MD PCP - General 04/01/08 documented as of this encounter
--- OUTSIDE RECORDS SUMMARY | 2024-12-05 19:37 | XMS_ITS | Encounter Summary ---
Author Organization [facility] Address [address] [place] [address] Care Team Providers Care Macaroni Maker Name Role Phone Apple Long MD Primary Care Provider [phone] Encounter Details Date Type Department Care Team (Late st Contact Info) Description 08/19/2006 Orders Only [facility] Pediatrics [place] [address] [facility] [place] [address] Apple Long MD [address] [phone] Social History Tobacco Use Types Packs/Day Years Used Date Smoking Tobacco: Never Assessed Comments Unknown Sex and Gender Information Value Date Recorded Sex Assigned at Not on file Legal Sex Female 4:32 AM CONTINUOUS YARN DYEING MACHINE OPERATOR Gender Identity Not on file Sexual Orientation Not on file documented as of this encounter Progress Notes * Apple Long MD - 12/18/2007 2:20 PM CDT TIME:10:12 am PATIENT`S HOME PHONE: PATIENT`S WORK PHONE: PATIENT`S INSURANCE: WHO TOOK THE CALL: Madisyn Green E * Apple Long MD - 12/18/2007 2:20 PM CDT PATIENT'S AGE: 1 yrs, 0 mths, 1 wk, 2 days VITALS: TEMP: 97.8Â°f Tympanic WEIGHT: 25.1lbs NURSE NAME: Shirley Fernandes M ACCOMPANIED BY: Mother. HISTORY PROVIDED BY: Mother. ALLERGIES: CURRENT ALLERGY LIST: NO KNOWN ALLERGIES MEDICATIONS: [id number], pedialyte CHIEF COMPLAINT: The child is here for evaluation of fever, vomiting, pulling on right ear. since yest, ear symptoms started today. Appetite ok, sleep ok, slept more than usual yesterday. HISTORY: HPI: see cc. Vomited three times last night. Lots of URI symptoms since a week ago. Ear ache began yesterday. REVIEW OF SYSTEMS: ALL NORMAL EXCEPT and are normal except as noted below. PHYSICAL EXAM: CONSTITUTIONAL: GENERAL APPEARANCE: Healthy appearing, alert patient, normally nourished, developmentally normal and in no acute distress. Active in room EYES: CONJUNCTIVA/LIDS: Conjunctivae and lids appear normal. PUPILS: Pupils equal and round. EARS, NOSE, MOUTH AND THROAT: EXTERNAL/EARS AND NOSE: Overall appearance normal without lesions or masses. EARS: BULGING TYMPANIC MEMBRANE NOTED IN THE RIGHT EAR, EFFUSION PRESENT IN THE RIGHT EAR, RIGHT TYMPANIC MEMBRANE INFLAMED. NOSE (AND SINUS): CLEAR NASAL DISCHARGE NOTED BILATERALLY. ORAL: Inspection of gums, lips, palate, and dentition normal. No lesions or masses. Oral mucosa unremarkable with non-inflamed posterior pharynx. NECK: No lymphadenopathy noted. Supple. RESPIRATORY: Clear to auscultation. Normal respiratory effort. CARDIOVASCULAR: CARDIAC: Regular rhythm with no murmurs, rubs, gallops, or abnormal heart sounds. GASTROINTESTINAL: ABDOMEN: Soft, non-tender, without masses. Bowel sound active. LIVER/SPLEEN/KIDNEY: No hepatosplenomegaly. LYMPHATICS: No lymphadenopathy in the neck, axillae, or groin. SKIN: INSPECTION: Good color, no rashes, birthmarks or lesions noted on arms, chest or abdomen. ASSESSMENT/PLAN: 382.00-OTITIS MEDIA ACUTE SUPPURATIVE MEDICATIONS: AMOXICILLIN ORAL SUSPENSION WHEN RECONSTITUTED 250 MG/5ML, 2 tsp po bid ten days, 10 Duration/Days Supply, status: NEW PRESCRIPTION, 08/19/2006. Electronically Signed by: Apple Long MD on Saturday, August 19, 2006 documented in this encounter Plan of Treatment Not on file documented as of this encounter Visit Diagnoses Not on filedocumented in this encounter Care Teams Macaroni Maker Relationship Specialty Start Date End Date Apple Long MD PCP - General 04/01/08 documented as of this encounter
--- OUTSIDE RECORDS SUMMARY | 2024-12-05 19:37 | XMS_ITS | Continuity of Care Document ---
Author Organization [facility] Address [address] [place] [address] Phone Care Team Providers Care Lead Developer Name Role Phone Threronald PT, Jemima Unavailable Unavailable Procedures Procedure Date Neuromuscular Re-Ed Therapeutic Activities Therapeutic Exercise Therapeutic Activities Neuromuscular Re-Ed Therapeutic Exercise Therapeutic Activities Neuromuscular Re-Ed Therapeutic Exercise Therapeutic Activities Neuromuscular Re-Ed Therapeutic Exercise Neuromuscular Re-Ed Therapeutic Activities Therapeutic Exercise Therapeutic Activities Neuromuscular Re-Ed Therapeutic Exercise PT Evaluation Low Complexity Neuromuscular Re-Ed Therapeutic Exercise Advance Directives Directive Yes / No Effective Date File Name No Information Encounters Encounter Description Practice Location Reason(s) For Visit Diagnoses Date Provider Providers Copied on Encounter [facility], [address] [address], [place], [place], [id number], tel:[phone] [place] No Information 0 Della Onofre. . Referring Provider: Anjana Serrano, [address] [place], [address]. tel:[phone] [facility], [address] [facility] [facility] [address], [place], [place], [id number], [place] tel:[phone] [place] No Information Mar-1 2-202 0 Makler Luke. . Referring Provider: Anjana Bhatia Maggie, [address] [place], [address]. tel:[phone] [facility], [address] [facility] [address], [place], [place], [id number], [place] tel:[phone] [place] No Information Mar-0 6-202 0 Threlkeld Jemima. . Referring Provider: Anjana Bhatia Maggie, [address] [place], [address]. tel:[phone] [facility], [address] [address], [place], [place], [id number], tel:[phone] [place] No Information Mar-0 5-202 0 Makler Luke. . Referring Provider: Anjana Bhatia Maggie, [facility] [place], [address]. tel:[phone] [facility], [address] [address], [place], [place], [id number], [place] tel:[phone] [place] No Information b-2 8- 0 Threlkeld Jemima. . Referring Provider: Anjana Bhatia Maggie, [address] [facility], [place], [address]. tel:[phone] [facility], [address] [address], [place], [place], [id number], [place] tel:[phone] [place] No Information b-2 7- 0 Shaheenhoffer Rekha. . Referring Provider: Anjana M Maggie, [address] [place], [address]. tel:[phone] [facility], [address] [facility] [address], [place], [place], [id number], [place] tel:[phone] [place] No Information b- 7-202 0 Threlkeld Jemima. . Referring Provider: Anjana M Maggie, [address] [facility], [place], [address]. tel:[phone] Family History Family Member Type Diagnosis Age At Onset No Information Payers Payer name Insurance type Covered green party ID Authorronaldoa malgorzata(s) [facility] [id number] Social History Type Description Quantity Date Captured Comments Sex Female Smoking Status No Information Chief Complaint And Reason For Visit No Information Reason For Referral Reason For Referral No Information History Of Present Illness Encounter Date Complaint History Of Prese nt Illness No Information Functional Status Date Functional Assessmen t No Information Instructions Date Instruction Additional Infor mation No Information Assessments Type Assessment Date No Information Patient Care Teams Name Effective Dates (start - stop) Status Members No Information
--- OUTSIDE RECORDS SUMMARY | 2024-12-05 19:37 | XMS_ITS | Encounter Summary ---
Author Organization [facility] Address [address] [place] [address] Care Team Providers Care Lead Software Test Engineer Name Role Phone Apple Long MD Primary Care Provider Encounter Details Date Type Department Care Team (Late st Contact Info) Description 09/26/2005 Orders Only [facility] Pediatrics [place] [address] [facility] [place] [address] Apple Long MD [address] [address] Social History Tobacco Use Types Packs/Day Years Used Date Smoking Tobacco: Never Assessed Comments Unknown Sex and Gender Information Value Date Recorded Sex Assigned at Not on file Legal Sex Female 4:32 AM BAR BACK Gender Identity Not on file Sexual Orientation Not on file documented as of this encounter Progress Notes * Apple Long MD - 05/01/2008 5:23 PM CDT PATIENT'S AGE: 1 yr, 1 mth, 2 wks, 4 days VITALS: TEMP: 96.6Â°f Tympanic wt 21 lbs NURSE NAME: Yajaira Whalen C ACCOMPANIED BY: Mother. HISTORY PROVIDED BY: Mother. ALLERGIES: CURRENT ALLERGY LIST: NO KNOWN ALLERGIES MEDICATIONS: Patient is taking no medications at present. CHIEF COMPLAINT: The child is here for evaluation of wheezing, cough, congestion. HISTORY: Per mom, has been wheezing off and on since 09/08/05. Was better on nebs, but since nebs d/c'd- symptoms worsened. No fevers. Playful. Coughing, runny nose, congestion throughout the last month. REVIEW OF SYSTEMS: ALL NORMAL EXCEPT and are normal except as noted below. PHYSICAL EXAM: CONSTITUTIONAL: GENERAL APPEARANCE: Healthy appearing, alert patient, normally nourished, developmentally normal and in no acute distress. EYES: CONJUNCTIVA/LIDS: Conjunctivae and lids appear normal. PUPILS: Pupils equal and round. EARS, NOSE, MOUTH AND THROAT: EXTERNAL/EARS AND NOSE: Overall appearance normal without lesions or masses. EARS: Tympanic membranes shiny without retraction. Canals unremarkable. Hearing grossly normal. NOSE (AND SINUS): CLEAR NASAL DISCHARGE NOTED BILATERALLY. ORAL: Inspection of gums, lips, palate, and dentition normal. No lesions or masses. Oral mucosa unremarkable with non-inflamed posterior pharynx. NECK: No lymphadenopathy noted. Supple. RESPIRATORY: MILD EXPIRATORY WHEEZE WITH FORCED EXPIRATION HEARD THROUGHOUT BOTH LUNG LANDEROS. CARDIOVASCULAR: CARDIAC: Regular rhythm with no murmurs, rubs, gallops, or abnormal heart sounds. GASTROINTESTINAL: ABDOMEN: Soft, non-tender, without masses. Bowel sound active. LIVER/SPLEEN/KIDNEY: No hepatosplenomegaly. SKIN: INSPECTION: Good color, no rashes, birthmarks or lesions noted on arms, chest or abdomen. ASSESSMENT/PLAN: 466.19-BRONCHIOLITIS ACUTE STATUS: New. MEDICATIONS: PULMICORT INHALATION SUSPENSION 0.5 MG/2ML UNITS, one vial into neb qday, 18 Dispensed, 18 samples given, status: NEW PRESCRIPTION, 09/26/2005. ACCUNEB INHALATION NEBULIZATION SOLUTION 0.63 MG/3ML UNITS, one vial into neb q four hrs prn, 6 Dispensed, 6 samples given, status: NEW PRESCRIPTION, 09/26/2005. Electronically Signed by: Apple Long MD on Monday, September 26, 2005 documented in this encounter Plan of Treatment Not on file documented as of this encounter Visit Diagnoses Not on filedocumented in this encounter Care Teams Lead Software Test Engineer Relationship Specialty Start Date End Date Apple Long MD PCP - General 04/01/08 documented as of this encounter
--- OUTSIDE RECORDS SUMMARY | 2024-12-05 19:37 | XMS_ITS | Encounter Summary ---
Author Organization [facility] Address [address] [place] [address] Care Team Providers Care Ruby On Rails Web Developer Name Role Phone Apple Long MD Primary Care Provider [phone] Encounter Details Date Type Department Care Team (Late st Contact Info) Description 12/07/2005 Orders Only [facility] Pediatrics [place] [address] [facility] [place] [address] Rina Park NP NO ADDRESS ON FILE Social History Tobacco Use Types Packs/Day Years Used Date Smoking Tobacco: Never Assessed Comments Unknown Sex and Gender Information Value Date Recorded Sex Assigned at Not on file Legal Sex Female 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
--- OUTSIDE RECORDS SUMMARY | 2024-12-05 19:37 | XMS_ITS | Encounter Summary ---
Author Organization [facility] Address [address] [place] [address] Care Team Providers Care Union Laborer Name Role Phone Apple Long MD Primary Care Provider Encounter Details Date Type Department Care Team (Late st Contact Info) Description 08/19/2006 Outpatient Historical [facility] Pediatrics [place] [address] [facility] [place] [address] Apple Long MD [address] [address] Social History Tobacco Use Types Packs/Day Years Used Date Smoking Tobacco: Never Assessed Comments Unknown Sex and Gender Information Value Date Recorded Sex Assigned at Not on file Legal Sex Female 4:32 AM BEACH LIFEGUARD Gender Identity Not on file Sexual Orientation Not on file documented as of this encounter Last Filed Vital Signs Vital Sign Reading Time Taken Comments Blood Pressure - - Pulse - - Temperature 36.6 C (97.8 F) 08/19/2006 10:45 AM BEACH LIFEGUARD Respiratory Rate - - Oxygen Saturation - - Inhaled Oxygen Concentration - - Weight 11.4 kg (25 lb 1.6 oz) 08/19/2006 10:45 A M BEACH LIFEGUARD Height - - Body Mass Index - - documented in this encounter Plan of Treatment Not on file documented as of this encounter Visit Diagnoses Not on filedocumented in this encounter Care Teams Union Laborer Relationship Specialty Start Date End Date Apple Long MD PCP - General 04/01/08 documented as of this encounter
--- OUTSIDE RECORDS SUMMARY | 2024-12-05 19:37 | XMS_ITS | Encounter Summary ---
Author Organization [facility] Address [address] [place] [address] Care Team Providers Care Visual Merchandising Associate Name Role Phone Apple Long MD Primary Care Provider Encounter Details Date Type Department Care Team (Late st Contact Info) Description 09/08/2005 Orders Only [facility] [place] [address] [facility] [place] [address] Apple Long MD [address] [id number] Social History Tobacco Use Types Packs/Day Years Used Date Smoking Tobacco: Never Assessed Comments Unknown Sex and Gender Information Value Date Recorded Sex Assigned at Not on file 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 HISTORY PROVIDED BY: Mother. ALLERGIES: CURRENT ALLERGY LIST: NO KNOWN ALLERGIES MEDICATIONS: RN/MA reviewed medications.tylenol CHIEF COMPLAINT: The child here for evaluation of congestion, vomiting, fever, cough. HISTORY: HPI: vomiting, diarrhea since 3 days ago. cough began the last 24 hrs. Sounds as if she's having stridor 102 fever in the last 48 hrs. REVIEW OF SYSTEMS: ALL NORMAL EXCEPT and [...] pharynx. NECK: No lymphadenopathy noted. Supple. RESPIRATORY: MODERATE EXPIRATORY WHEEZE HEARD THROUGHOUT BOTH LUNG LANDEROS. rr 60 CARDIOVASCULAR: CARDIAC: Regular rhythm with no murmurs, rubs, gallops, or abnormal heart sounds. GASTROINTESTINAL: ABDOMEN: Soft, non-tender, without masses. Bowel sound active. LIVER/SPLEEN/KIDNEY: No hepatosplenomegaly. SKIN: INSPECTION: Good color, no rashes, birthmarks or lesions noted on arms, chest or abdomen. OFFICE PROCEDURE: Nebulizer treatment administered using 0.63 mg Xoponex. RESPONSE TO TREATMENT #2 Respiratory status showed improvement. ASSESSMENT/PLAN: 466.19-BRONCHIOLITIS ACUTE MEDICATIONS: XOPENEX INHALATION NEBULIZATION SOLUTION 0.63 MG/3ML UNITS, 1 AEROSOL SOLU ONE TIME INHALATION EVERY FOUR TO SIX HOURS PRN, 16 Dispensed, 16 samples given, status: NEW PRESCRIPTION, 09/08/2005. Call with update in am. Electronically Signed by: Apple Long MD on August documented in this encounter Plan of Treatment Not on file documented as of this encounter Visit Diagnoses Not on filedocumented in this encounter Care Teams Visual Merchandising Associate Relationship Specialty Start Date End Date Apple Long MD PCP - General 04/01/08 documented as of this encounter
--- NOTE | 2024-12-05 19:59 | ECG_ITS ---
Test Date: 2024-12-05 20:24:42 Measurements Intervals [place] Rate: 91 P: 7 PA: 114 QRS: 73 QRSD: 86 T: 40 QT: 358 QTc: 442 Interpretive Statements SINUS RHYTHM WITH SINUS ARRHYTHMIA WITH SHORT PA INTERVAL MINIMAL ST DEPRESSION [0.025+ mV ST DEPRESSION] ABNORMAL ECG No previous ECG available for comparison Electronically Signed On 12-06-2024 09:53:18 CDT by Vipin Quinones M.D.
[2024-12-05 20:08] VITALS: BP 95/55; PULSE 113; RESP 20; TEMP 37.9; O2SAT 100
--- NOTE | 2024-12-05 20:45 | ED.NAVMDI ---
HPI - Nausea/Vomiting/Diarrhea General Chief complaint: Nausea/Vomiting/Diarrhea <Janette Robertson APRN - Last Filed: 12/06/24 00:41> Stated complaint: N/V, fever, chills x 2 days-weakness <Janette Robertson APRN - Last Filed: 12/06/24 00:41> Time Seen by Provider: 12/05/24 20:20 <Janette Robertson APRN - Last Filed: 12/06/24 00:41> History of Present Illness HPI Narrative: Patient is a 19-year-old female who presents to the ER with complaints fever, vomiting and lower abdominal pain. She reports symptoms started 2-3 days ago. Patient endorses lower abdominal pain and burning with urination. She reports lately she has been taking laxatives because she thought she was constipated but they have not given her much relief. Patient also endorses of fever that started earlier today. She reports she has a history of addiction and has an IUD. <Janette Robertson APRN - Last Filed: 12/06/24 00:41> Related Data Home medications: Home Medications Medication Instructions Recorded Confirmed Last Taken Type levonorgestrel 14 mcg/24 hr (up to 1 device intrauterine ONCE 03/22/22 07/30/24 Unknown History 3 yrs) 13.5 mg intrauterine device (Aleyda) <Janette Robertson APRN - Last Filed: 12/06/24 00:41> Allergies/Adverse reactions: Allergies Allergy/AdvReac Type Severity Reaction Status Date / Time clonazepam AdvReac Intermediate suicidal Verified 12/05/24 20:39 thoughts codeine AdvReac Intermediate Headache Verified 12/05/24 20:39 Penicillins AdvReac Rash Verified 12/05/24 20:39 <Janette Robertson APRN - Last Filed: 12/06/24 00:41> Review of Systems Review of Systems: All systems reviewed & are unremarkable except as noted in HPI and below <Janette Robertson APRN - Last Filed: 12/06/24 00:41> PMFSH Past Medical History Medical History: Medical History ADHD Remove/insert IUD Encounter for screening examination for sexually transmitted disease Encounter for IUD insertion 01/23/19 aleyda insertion Depression Anxiety UTI (urinary tract infection) <Janette Robertson APRN - Last Filed: 12/06/24 00:41> Surgical History Surgical History: Surgical History History of gynecological procedure (03/22/22) Aleyda iud removal and insertion <Janette Robertson APRN - Last Filed: 12/06/24 00:41> Family History Family History: Family History Grandparent Breast cancer paternal grandmother <Janette Robertson APRN - Last Filed: 12/06/24 00:41> Social History Social History: Social History Smoking status: Never smoker Alcohol intake: never Substance use: never Substance use type: does not use Do You Feel Safe in your Home?: Yes Lack of Transportation: No Lack of Food: Never True Current Housing: I Have Housing Concerned About Future Housing: No Difficulty Paying Gas/Electric Bills: Decline to Answer Difficulty Paying for Meds: Decline to Answer Currently Unemployed: No Education: High School Diploma/GED Difficulty w/ Childcare or Family Care: No Living arrangements: alone Occupation/Education: occupation Additional occupation/education comments: [employer] Gender identity (if verbalized by the patient): Female Sexual Orientation (if Verbalized by the Patient): Bisexual <Janette Robertson APRN - Last Filed: 12/06/24 00:41> Exam Narrative: GENERAL: Well-nourished, well-developed adult, in mild distress d/t pain. They are ill-appearing, nontoxic appearing. HEAD: normocephalic, atraumatic. EYES: Sclera clear/white. Vision is grossly intact. Conjunctiva normal bilaterally. Extraocular movements intact. EARS: External ears normal, auditory canals clear and without drainage, TMs without erythema or perforation. Hearing grossly intact. NOSE: External nose normal with no obvious nasal discharge, nasal turbinates without redness, no rhinorrhea. THROAT: Mucous membranes moist, posterior pharynx without erythema or exudate. Uvula is midline. NECK: Neck supple, non-tender without lymphadenopathy, masses or thyromegaly. CARDIOVASCULAR: Tachycardic rate and rhythm without murmurs, gallops, or rubs. RESPIRATORY: Clear to auscultation. Breath sounds equal bilaterally. No wheezes, rales, or rhonchi. GASTROINTESTINAL: Abdomen soft, flat, tender to palpation to the lower abdomen. Bowel sounds are active. No hepato-splenomegaly, or palpable masses. Patient is guarding her abdomen. No rebound tenderness. SKIN: warm, clammy, diaphoretic, intact with no suspicious lesions or rash, good texture and turgor. NEURO: awake, alert, and oriented to person, place and time. There were no obvious focal neurologic abnormalities. EXTREMITIES: No joint tenderness, effusion, or edema noted. BACK: Nontender without deformity. No CVA tenderness. <Janette Robertson APRN - Last Filed: 12/06/24 00:41> Course PASSENGER CAR CLEANING SUPERVISOR/PA Physician Supervision I agree with midlevel documentation; I performed the medical decision making component of this evaluation. I had independent [id number] time with the patient and performed my own independent evaluation and assessment. Patient has signs and symptoms of his significant urinary infection with bilateral pyelonephritis, fever, tachycardia and elevated white count. Patient received fluid resuscitation, lactic acid and blood cultures obtained, CT scan shows bilateral pyelonephritis without any obstructing kidney stones. Patient has an elevated white count as well as a elevated creatinine consistent with kidney injury. Her lactic acid is negative. Patient's pain was improved and tachycardia resolved with fluids. Blood pressures remain on the soft side. Patient agreeable to admission to the hospital. Hospitalist was spoken to and agreeable to accept the patient at this time. <Cong Lara MD - Last Filed: 12/06/24 04:23> Vital Signs Vital signs: Vital Signs Temperature 37.9 C H 12/05/24 20:08 Pulse Rate 113 H 12/05/24 20:08 Respiratory Rate 20 12/05/24 20:08 Blood Pressure 95/55 L 12/05/24 20:08 Pulse Oximetry 100 12/05/24 20:08 Oxygen Delivery Room Air 12/05/24 20:08 Temperature 37.9 C H 12/05/24 20:08 Pulse Rate 88 12/06/24 00:37 Respiratory Rate 12 12/06/24 00:37 Blood Pressure 98/65 L 12/06/24 00:37 Pulse Oximetry 99 12/06/24 00:37 Oxygen Delivery Room Air 12/05/24 20:08 <Janette Robertson APRN - Last Filed: 12/06/24 00:41> Vital Signs Temperature 37.9 C H 12/05/24 20:08 Pulse Rate 113 H 12/05/24 20:08 Respiratory Rate 20 12/05/24 20:08 Blood Pressure 95/55 L 12/05/24 20:08 Pulse Oximetry 100 12/05/24 20:08 Oxygen Delivery Room Air 12/05/24 20:08 Temperature 37.9 C H 12/05/24 20:08 Pulse Rate 88 12/06/24 00:37 Respiratory Rate 12 12/06/24 00:37 Blood Pressure 98/65 L 12/06/24 00:37 Pulse Oximetry 99 12/06/24 00:37 Oxygen Delivery Room Air 12/05/24 20:08 <Cong Lara MD - Last Filed: 12/06/24 04:23> MDM - Nausea/Vomiting/Diarrhea MDM Narrative Medical decision making narrative: Patient is a 19-year-old female who presents to the ER with complaints fever, vomiting and lower abdominal pain. She reports symptoms started 2-3 days ago. Patient endorses lower abdominal pain and burning with urination. She reports lately she has been taking laxatives because she thought she was constipated but they have not given her much relief. Patient also endorses of fever that started earlier today. She reports she has a history of addiction and has an IUD. Labs Ordered: CBC, CMP, lactic acid, CK, troponin, lipase, UA Imaging Ordered: CT abdomen pelvis Medications Ordered: 2 L normal saline IV bolus, ceftriaxone 1 g IV, Benadryl 25 mg IV, Reglan 10 mg IV, Toradol 30 mg IV Results: Pt's CT abdomen/pelvis scan indicates 1. Bilateral pyelonephritis more on the left side. Follow-up and clinical correlation advised. 2. No evidence of appendicitis, diverticulitis or intestinal obstruction. Diagnosis: Pyelonephritis, sepsis Patient Education/Shared MDM: Results of lab work and imaging shared with patient. She endorses improvement of symptoms following medication administration. PASSENGER CAR CLEANING SUPERVISOR advised patient that she should remain in the hospital for further treatment. Although patient was hesitant she agreed to plan. <Janette Robertson APRN - Last Filed: 12/06/24 00:41> Differential Diagnosis Differential diagnosis: Likely dehydration and other (Pyelonephritis, urinary tract infection, appendicitis) <Janette Robertson APRN - Last Filed: 12/06/24 00:41> Lab Data Attestation: I reviewed the patient's lab results. <Janette Robertson BRANCH OPERATIONS MANAGER - Last Filed: 12/06/24 00:41> Result diagrams: 12/05/24 20:40 12/05/24 20:40 <Janette Robertson APRN - Last Filed: 12/06/24 00:41> Labs: Lab Results 12/05/24 12/05/24 12/05/24 Range/Units 20:40 20:58 21:44 WBC 18.4 H (4.5-10.0) K/mm3 RBC 4.24 (4.2-5.4) M/mm3 Hgb 12.3 (12.0-15.0) g/dL Hct 35.9 L (37.0-47.0) % MCV 84.7 (80-100) fl MCH 29.0 (26-34) pg MCHC 34.3 (32-36) g/dl RDW 11.9 (11.5-14.5) % Plt Count 160 (150-375) k/mm3 MPV 11.6 H (7.4-10.4) fl Immature Gran % (Auto) 1.4 H (0-0.5) % Neut % (Auto) 83.4 H (45.5-73.1) % Lymph % (Auto) 3.4 L (18.3-44.2) % Barnes % (Auto) 11.0 H (2.6-8.5) % Eos % (Auto) 0.5 (0-4.4) % Baso % (Auto) 0.3 (0.2-1.2) % Lymph # (Auto) 0.63 L (0.9-3.2) K/mm3 Barnes # (Auto) 2.0 H (0.1-0.6) K/mm3 Eos # (Auto) 0.1 (0-0.3) K/mm3 Baso # (Auto) 0.1 (0.0-0.1) K/mm3 Abs Immat Gran (auto) 0.25 H (0.00-0.031) K/mm3 Absolute Neuts (auto) 15.4 H (1.3-6.7) K/mm3 Absolute Nucleated RBC 0.000 (0.0-0.012) K/mm3 Nucleated RBC % 0.0 (0.0-0.2) % Sodium 134 L (137-145) mmol/L Potassium 3.1 L (3.4-5.0) mmol/L Chloride 99 (98-107) mmol/L Carbon Dioxide 19 L (22-30) mmol/L Anion Gap 16 H (4-12) mmol/L BUN 13 (7-17) mg/dL Creatinine 1.19 H (0.7-1.0) mg/dL Estim Creat Clear Calc 48 ml/min Estimated GFR 58 L (59 - ) Glucose 112 H (65-110) mg/dL Lactic Acid 2.0 (0.7-2.0) mmol/L Calcium 9.6 (8.4-10.2) mg/dL Total Bilirubin 1.3 (0.2-1.3) mg/dL AST 32 (14-36) U/L ALT 26 (6-35) U/L Alkaline Phosphatase 68 (38-126) U/L Total Creatine Kinase 40 (30-135) U/L Troponin I < 0.012 (0.000-0.034) ng/mL Total Protein 7.0 (6.3-8.2) g/dL Albumin 4.3 (3.5-5.1) g/dL Lipase 34 (23-300) U/L Urine Color Yellow (Yellow) Urine Appearance Cloudy H (Clear) Urine pH 7.0 (5.0-9.0) Ur Specific [place] 1.016 (1.001-1.035) Urine Protein 2+ H (Negative) mg/dL Urine Glucose (UA) Negative (Negative) mg/dL Urine Ketones 3+ H (Negative) mg/dL Ur Blood (Man) Trace (Negative) Urine Nitrate Positive H (Negative) Urine Bilirubin Negative (Negative) Urine Urobilinogen 1.0 (<2.0) mg/dL Add Ur Microanalysis Reviewed Leukocyte Esterase Rfl 2+ H (Negative) EMERY/UL Urine RBC 0-2 (0-2) /hpf Urine WBC 21-50 H (0-3) /hpf Ur Squamous Epith Cells Few (Few) /hpf Urine Bacteria 4+ H /hpf Urine Casts 0-2 Urine Mucus Present /lpf Urine Yeast (Budding) Present H (None) /hpf POC Urine HCG, Qual (Negative) 12/05/24 Range/Units 22:06 WBC (4.5-10.0) K/mm3 RBC (4.2-5.4) M/mm3 Hgb (12.0-15.0) g/dL Hct (37.0-47.0) % MCV (80-100) fl MCH (26-34) pg MCHC (32-36) g/dl RDW (11.5-14.5) % Plt Count (150-375) k/mm3 MPV (7.4-10.4) fl Immature Gran % (Auto) (0-0.5) % Neut % (Auto) (45.5-73.1) % Lymph % (Auto) (18.3-44.2) % Barnes % (Auto) (2.6-8.5) % Eos % (Auto) (0-4.4) % Baso % (Auto) (0.2-1.2) % Lymph # (Auto) (0.9-3.2) K/mm3 Barnes # (Auto) (0.1-0.6) K/mm3 Eos # (Auto) (0-0.3) K/mm3 Baso # (Auto) (0.0-0.1) K/mm3 Abs Immat Gran (auto) (0.00-0.031) K/mm3 Absolute Neuts (auto) (1.3-6.7) K/mm3 Absolute Nucleated RBC (0.0-0.012) K/mm3 Nucleated RBC % (0.0-0.2) % Sodium (137-145) mmol/L Potassium (3.4-5.0) mmol/L Chloride (98-107) mmol/L Carbon Dioxide (22-30) mmol/L Anion Gap (4-12) mmol/L BUN (7-17) mg/dL Creatinine (0.7-1.0) mg/dL Estim Creat Clear Calc ml/min Estimated GFR (59 - ) Glucose (65-110) mg/dL Lactic Acid (0.7-2.0) mmol/L Calcium (8.4-10.2) mg/dL Total Bilirubin (0.2-1.3) mg/dL AST (14-36) U/L ALT (6-35) U/L Alkaline Phosphatase (38-126) U/L Total Creatine Kinase (30-135) U/L Troponin I (0.000-0.034) ng/mL Total Protein (6.3-8.2) g/dL Albumin (3.5-5.1) g/dL Lipase (23-300) U/L Urine Color (Yellow) Urine Appearance (Clear) Urine pH (5.0-9.0) Ur Specific [place] (1.001-1.035) Urine Protein (Negative) mg/dL Urine Glucose (UA) (Negative) mg/dL Urine Ketones (Negative) mg/dL Ur Blood (Man) (Negative) Urine Nitrate (Negative) Urine Bilirubin (Negative) Urine Urobilinogen (<2.0) mg/dL Add Ur Microanalysis Leukocyte Esterase Rfl (Negative) EMERY/UL Urine RBC (0-2) /hpf Urine WBC (0-3) /hpf Ur Squamous Epith Cells (Few) /hpf Urine Bacteria /hpf Urine Casts Urine Mucus /lpf Urine Yeast (Budding) (None) /hpf POC Urine HCG, Qual Negative (Negative) <Janette Robertson, BRANCH OPERATIONS MANAGER - Last Filed: 12/06/24 00:41> Lab Results 12/05/24 12/05/24 12/05/24 Range/Units 20:40 20:58 21:44 WBC 18.4 H (4.5-10.0) K/mm3 RBC 4.24 (4.2-5.4) M/mm3 Hgb 12.3 (12.0-15.0) g/dL Hct 35.9 L (37.0-47.0) % MCV 84.7 (80-100) fl MCH 29.0 (26-34) pg MCHC 34.3 (32-36) g/dl RDW 11.9 (11.5-14.5) % Plt Count 160 (150-375) k/mm3 MPV 11.6 H (7.4-10.4) fl Immature Gran % (Auto) 1.4 H (0-0.5) % Neut % (Auto) 83.4 H (45.5-73.1) % Lymph % (Auto) 3.4 L (18.3-44.2) % Barnes % (Auto) 11.0 H (2.6-8.5) % Eos % (Auto) 0.5 (0-4.4) % Baso % (Auto) 0.3 (0.2-1.2) % Lymph # (Auto) 0.63 L (0.9-3.2) K/mm3 Barnes # (Auto) 2.0 H (0.1-0.6) K/mm3 Eos # (Auto) 0.1 (0-0.3) K/mm3 Baso # (Auto) 0.1 (0.0-0.1) K/mm3 Abs Immat Gran (auto) 0.25 H (0.00-0.031) K/mm3 Absolute Neuts (auto) 15.4 H (1.3-6.7) K/mm3 Absolute Nucleated RBC 0.000 (0.0-0.012) K/mm3 Nucleated RBC % 0.0 (0.0-0.2) % Sodium 134 L (137-145) mmol/L Potassium 3.1 L (3.4-5.0) mmol/L Chloride 99 (98-107) mmol/L Carbon Dioxide 19 L (22-30) mmol/L Anion Gap 16 H (4-12) mmol/L BUN 13 (7-17) mg/dL Creatinine 1.19 H (0.7-1.0) mg/dL Estim Creat Clear Calc 48 ml/min Estimated GFR 58 L (59 - ) Glucose 112 H (65-110) mg/dL Lactic Acid 2.0 (0.7-2.0) mmol/L Calcium 9.6 (8.4-10.2) mg/dL Total Bilirubin 1.3 (0.2-1.3) mg/dL AST 32 (14-36) U/L ALT 26 (6-35) U/L Alkaline Phosphatase 68 (38-126) U/L Total Creatine Kinase 40 (30-135) U/L Troponin I < 0.012 (0.000-0.034) ng/mL Total Protein 7.0 (6.3-8.2) g/dL Albumin 4.3 (3.5-5.1) g/dL Lipase 34 (23-300) U/L Urine Color Yellow (Yellow) Urine Appearance Cloudy H (Clear) Urine pH 7.0 (5.0-9.0) Ur Specific [place] 1.016 (1.001-1.035) Urine Protein 2+ H (Negative) mg/dL Urine Glucose (UA) Negative (Negative) mg/dL Urine Ketones 3+ H (Negative) mg/dL Ur Blood (Man) Trace (Negative) Urine Nitrate Positive H (Negative) Urine Bilirubin Negative (Negative) Urine Urobilinogen 1.0 (<2.0) mg/dL Add Ur Microanalysis Reviewed Leukocyte Esterase Rfl 2+ H (Negative) EMERY/UL Urine RBC 0-2 (0-2) /hpf Urine WBC 21-50 H (0-3) /hpf Ur Squamous Epith Cells Few (Few) /hpf Urine Bacteria 4+ H /hpf Urine Casts 0-2 Urine Mucus Present /lpf Urine Yeast (Budding) Present H (None) /hpf POC Urine HCG, Qual (Negative) 12/05/24 Range/Units 22:06 WBC (4.5-10.0) K/mm3 RBC (4.2-5.4) M/mm3 Hgb (12.0-15.0) g/dL Hct (37.0-47.0) % MCV (80-100) fl MCH (26-34) pg MCHC (32-36) g/dl RDW (11.5-14.5) % Plt Count (150-375) k/mm3 MPV (7.4-10.4) fl Immature Gran % (Auto) (0-0.5) % Neut % (Auto) (45.5-73.1) % Lymph % (Auto) (18.3-44.2) % Barnes % (Auto) (2.6-8.5) % Eos % (Auto) (0-4.4) % Baso % (Auto) (0.2-1.2) % Lymph # (Auto) (0.9-3.2) K/mm3 Barnes # (Auto) (0.1-0.6) K/mm3 Eos # (Auto) (0-0.3) K/mm3 Baso # (Auto) (0.0-0.1) K/mm3 Abs Immat Gran (auto) (0.00-0.031) K/mm3 Absolute Neuts (auto) (1.3-6.7) K/mm3 Absolute Nucleated RBC (0.0-0.012) K/mm3 Nucleated RBC % (0.0-0.2) % Sodium (137-145) mmol/L Potassium (3.4-5.0) mmol/L Chloride (98-107) mmol/L Carbon Dioxide (22-30) mmol/L Anion Gap (4-12) mmol/L BUN (7-17) mg/dL Creatinine (0.7-1.0) mg/dL Estim Creat Clear Calc ml/min Estimated GFR (59 - ) Glucose (65-110) mg/dL Lactic Acid (0.7-2.0) mmol/L Calcium (8.4-10.2) mg/dL Total Bilirubin (0.2-1.3) mg/dL AST (14-36) U/L ALT (6-35) U/L Alkaline Phosphatase (38-126) U/L Total Creatine Kinase (30-135) U/L Troponin I (0.000-0.034) ng/mL Total Protein (6.3-8.2) g/dL Albumin (3.5-5.1) g/dL Lipase (23-300) U/L Urine Color (Yellow) Urine Appearance (Clear) Urine pH (5.0-9.0) Ur Specific [place] (1.001-1.035) Urine Protein (Negative) mg/dL Urine Glucose (UA) (Negative) mg/dL Urine Ketones (Negative) mg/dL Ur Blood (Man) (Negative) Urine Nitrate (Negative) Urine Bilirubin (Negative) Urine Urobilinogen (<2.0) mg/dL Add Ur Microanalysis Leukocyte Esterase Rfl (Negative) EMERY/UL Urine RBC (0-2) /hpf Urine WBC (0-3) /hpf Ur Squamous Epith Cells (Few) /hpf Urine Bacteria /hpf Urine Casts Urine Mucus /lpf Urine Yeast (Budding) (None) /hpf POC Urine HCG, Qual Negative (Negative) <Cong Lara MD - Last Filed: 12/06/24 04:23> Imaging Data Attestation: I personally reviewed and interpreted this imaging study as follows: <Janette Robertson APRN - Last Filed: 12/06/24 00:41> Radiologist's impression: Impressions Chest X-Ray 12/05/24 21:50 IMPRESSION: No acute cardiopulmonary pathology. Abdomen/Pelvis CT 12/05/24 23:59 IMPRESSION: 1. Bilateral pyelonephritis more on the left side. Follow-up and clinical correlation advised. 2. No evidence of appendicitis, diverticulitis or intestinal obstruction. <Janette Robertson APRN - Last Filed: 12/06/24 00:41> Critical Care Time Critical Care Time Critical Care Time: Yes <Cong Lara MD - Last Filed: 12/06/24 04:23> Total Critical Care Time: 35 <Cong Lara MD - Last Filed: 12/06/24 04:23> Discharge Plan Discharge Clinical Impression: Pyelonephritis, Sepsis, Dehydration, Acute kidney injury <Janette Robertson APRN - Last Filed: 12/06/24 00:41> Patient Disposition: Still a Patient <Janette Robertson APRN - Last Filed: 12/06/24 00:41> Condition: Stable <Janette Robertson APRN - Last Filed: 12/06/24 00:41>
[2024-12-05 20:48] LABS: Basophils Absolute Auto 0.1 K/mm3 (0.0-0.1); Basophils Percent Auto 0.3 % (0.2-1.2); Eosinophils Absolute Auto 0.1 K/mm3 (0-0.3); Eosinophils Percent Auto 0.5 % (0-4.4); Hematocrit 35.9 % (37.0-47.0); Hemoglobin 12.3 g/dL (12.0-15.0); Immature Granulocyte Absolute 0.25 K/mm3 (0.00-0.031); Immature Granulocyte Percent A 1.4 % (0-0.5); Lymphocytes Absolute Auto 0.63 K/mm3 (0.9-3.2); Lymphocytes Percent Auto 3.4 % (18.3-44.2); Mean Corpuscular HGB Conc 34.3 g/dl (32-36); Mean Corpuscular Volume 84.7 fl (80-100); Mean Platelet Volume 11.6 fl (7.4-10.4); Neutrophils Absolute Auto 15.4 K/mm3 (1.3-6.7); Neutrophils Percent Auto 83.4 % (45.5-73.1); Platelet Count Result 160 k/mm3 (150-375); Red Blood Count 4.24 M/mm3 (4.2-5.4); Red Cell Distribution Width 11.9 % (11.5-14.5); White Blood Count 18.4 K/mm3 (4.5-10.0)
[2024-12-05] MEDS: diphenhydrAMINE HCl INJ 50 MG/ML VIAL 25 MG IV PUSH (20:57)
[2024-12-05] MEDS: SODIUM CHLORIDE 0.9% IV 1,000 ML 999 ML IV CONT ×2 (20:57→22:17)
[2024-12-05] MEDS: METOCLOPRAMIDE HCL INJ 10 MG/2 ML VIAL IV PUSH (20:57)
[2024-12-05] MEDS: KETOROLAC 30 MG/ML VIAL (*BKC) IV PUSH (20:57)
[2024-12-05 21:08] LABS: Troponin I < 0.012 ng/mL (0.000-0.034)
[2024-12-05 21:10] LABS: Alanine Aminotransferase 26 U/L (6-35); Albumin Level 4.3 g/dL (3.5-5.1); Alkaline Phosphatase 68 U/L (38-126); Anion Gap 16 mmol/L (4-12); Aspartate Amino Transferase 32 U/L (14-36); Bilirubin,Total 1.3 mg/dL (0.2-1.3); Blood Urea Nitrogen 13 mg/dL (7-17); Calcium 9.6 mg/dL (8.4-10.2); Carbon Dioxide 19 mmol/L (22-30); Chloride 99 mmol/L (98-107); Estimated CRCL calculation 48 ml/min; Estimated Glomerular Filt Rate 58; Glucose 112 mg/dL (65-110); Lipase 34 U/L (23-300); Potassium 3.1 mmol/L (3.4-5.0); Sodium 134 mmol/L (137-145)
--- OUTSIDE RECORDS SUMMARY | 2024-12-05 21:17 | XMS_ITS | Clinical Summary ---
Author Organization [facility] Address [address] [place] [address] Care Team Providers Care Museum Service Scheduler Name Role Phone Cass Rodriguez MD Primary Care Provider [phone] Dayna Gonzalez MD Unavailable Molly Silverio Unavailable -[phone] Source Comments [facility],non-owned Affiliates and Associated Physician Practices is amultiple site organization consisting of ambulatory clinics and hospital sitesin [place], [place], [place] and [place]. This disclosure is being madepursuant to the Care Everywhere program and may not contain all information available regarding this patient. Last updated 18.[facility] Allergies Active Allergy Reactions Criticality Noted [...] level behind tympanic membrane of both ears [place] 1 (one) spray into each nostril 2 [...] Type Department Care Team Description 11/01/2024 Refill [facility] [address] [place] [address] Suzie Barreto, STILL TENDER-ORACLE BPM CONSULTANT Refill Request from Last 3 Months Immunizations [...] PM CDT Legal Sex Female 3:43 PM MOBILITY ARCHITECT Gender Identity Female 02/22/2023 3:48 PM CDT Sexual Orientation Not on file Last Filed Vital Signs Vital Sign Reading Time Taken Comments Blood Pressure 114/60 07/03/2024 8:50 AM MOBILITY ARCHITECT Pulse 74 07/03/2024 8:50 AM MOBILITY ARCHITECT Temperature 36.3 C (97.4 F) 07/03/2024 8:50 AM MOBILITY ARCHITECT Respiratory Rate 18 07/03/2024 8:50 AM MOBILITY ARCHITECT Oxygen Saturation 98% 07/03/2024 8:50 AM MOBILITY ARCHITECT Inhaled Oxygen Concentration - - Weight 50.8 kg (112 lb) 07/03/2024 8:50 AM MOBILITY ARCHITECT Height 154.9 cm (5' 1 ) 07/03/2024 8:50 AM MOBILITY ARCHITECT Body Mass Index 21.16 07/03/2024 8:50 AM MOBILITY ARCHITECT Plan of Treatment Health Maintenance Due Date [...] GC AMPLIFIED PROBE Routine 09/07/2023 1:00 PM MOBILITY ARCHITECT Dysuria HEPATITIS C AB W/RFLX TO HCV RNA QN PCR 06/12/2023 3:00 PM MOBILITY ARCHITECT Elevated liver enzymes from Last 3 Months or Most Recently Relevant to Health Maintenance Results * CHLAMYDIA + GC AMPLIFIED PROBE (09/07/2023 1:00 PM MOBILITY ARCHITECT) Chlamydia RENETTA Urine Negative Negative [facility] INSURANCE BILL GC R[place] Urine Negative Negative [facility] INSURANCE BILL Microbiology ENTIRE VAGINA / Unknown 09/07/2023 1:00 PM MOBILITY ARCHITECT 09/07/2023 Narrative Resulting Agency Comment Lab Testing performed at: [address] [id number] Suzie Barreto STILL TENDER-ORACLE BPM CONSULTANT LAB - MICROBIOLOGY ORDER MISSY Final Result [facility] INSURANCE BILL [address] [place] [address] * HEPATITIS C AB W/RFLX TO HCV RNA QN PCR (06/12/2023 3:00 PM MOBILITY ARCHITECT) Hepatitis C Antibody NON-REACTI VE NON-REACT [facility] Comment: HCV antibody was non-reactive. There is no laboratory evidence of HCV infection. In most cases, no further action is required. However, if recent HCV exposure is suspected, a test for HCV RNA (test code 17314) is suggested. For additional information please refer to http://education.[employer]a.A la Mobile/faq/OKZ17w2 (This link is being provided for informational/ educational purposes only.) NO COLLECTION DATE RECEIVED. WE HAVE USED THE DATE THE SPECIMEN WAS RECEIVED BY THIS LABORATORY THE COLLECTION DATE. IF THIS IS INCORRECT, PLEASE CONTACT CLIENT SERVICES. PHONE NUMBER: [phone] Test Performed at: [place] [facility] [place] [address] [facility] [address] MELISSA QUIROZ MD 06/12/2023 6:4 1 AM MOBILITY ARCHITECT us Babak Frost III, MD LAB - CHEMISTRY ORDER MISSY Final Result [facility] [address] [place] [address] from Last 3 Months or Most Recently Relevant to Health Maintenance Insurance CIG Care Teams Museum Service Scheduler Relationship Specialty Start Date End Date Cass Rodriguez MD [address] [facility] [address] OF [facility] [place] [address] PCP - General Internal Medicine 02/22/23 Dayna Gonzalez MD [address] [facility] [address] [place] [address] Pediatrics 02/22/23 Molly Silverio PA [address] [place] [address] [phone] (Work) Physician Rotary Drill Operator 08/30/19
--- OUTSIDE RECORDS SUMMARY | 2024-12-05 21:17 | XMS_ITS | Encounter Summary ---
Author Organization [facility] Address [address] [place] [address] Care Team Providers Care Organisation And Methods Analyst Name Role Phone Apple Long MD Primary Care Provider Encounter Details Date Type Department Care Team (Late st Contact Info) Description 06/08/2006 Outpatient Historical [facility] [place] [address] [facility] [place] [address] Apple Long MD [address] [phone] Social History Tobacco Use Types Packs/Day Years Used Date Smoking Tobacco: Never Assessed Comments Unknown Sex and Gender Information Value Date Recorded Sex Assigned at Not on file Legal Sex Female 4:32 AM SHREDDED FILLER CUTTER OPERATOR Gender Identity Not on file Sexual Orientation Not on file documented as of this encounter Plan of Treatment Not on file documented as of this encounter Visit Diagnoses Not on filedocumented in this encounter Care Teams Organisation And Methods Analyst Relationship Specialty Start Date End Date Apple Long MD PCP - General 04/01/08 documented as of this encounter
--- OUTSIDE RECORDS SUMMARY | 2024-12-05 21:17 | XMS_ITS | Encounter Summary ---
Author Organization [facility] Address [address] [place] [address] Care Team Providers Care Frit Coater Name Role Phone Apple Long MD Primary Care Provider Encounter Details Date Type Department Care Team (Late st Contact Info) Description 2004 Outpatient Historical [facility] [place] [address] [facility] [place] [address] Apple Long MD [address] [phone] Social History Tobacco Use Types Packs/Day Years Used Date Smoking Tobacco: Never Assessed Comments Unknown Sex and Gender Information Value Date Recorded Sex Assigned at Not on file Legal Sex Female 4:32 AM STEEL POURER Gender Identity Not on file Sexual Orientation Not on file documented as of this encounter Plan of Treatment Not on file documented as of this encounter Visit Diagnoses Not on filedocumented in this encounter Care Teams Frit Coater Relationship Specialty Start Date End Date Apple Long MD PCP - General 04/01/08 documented as of this encounter
--- OUTSIDE RECORDS SUMMARY | 2024-12-05 21:17 | XMS_ITS | Encounter Summary ---
Author Organization [facility] Address [address] [place] [address] Care Team Providers Care Barrel Washer Name Role Phone Apple Long MD Primary Care Provider [phone] Encounter Details Date Type Department Care Team (Late st Contact Info) Description 2004 Outpatient Historical [facility] Pediatrics [place] [address] [facility] [place] [address] [place] [address] [facility] [address] [place] [address] Social History Tobacco Use Types Packs/Day Years Used Date Smoking Tobacco: Never Assessed Comments Unknown Sex and Gender Information Value Date Recorded Sex Assigned at Not on file Legal Sex Female 4:32 AM MEDICAL OBSERVER Gender Identity Not on file Sexual Orientation Not on file documented as of this encounter Plan of Treatment Not on file documented as of this encounter Visit Diagnoses Not on filedocumented in this encounter Care Teams Barrel Washer Relationship Specialty Start Date End Date Apple Long MD PCP - General 04/01/08 documented as of this encounter
--- OUTSIDE RECORDS SUMMARY | 2024-12-05 21:17 | XMS_ITS | Encounter Summary ---
Author Organization [facility] Address [address] [place] [address] Care Team Providers Care Decommissioning Well Site Manager Name Role Phone Apple Long MD Primary Care Provider Encounter Details Date Type Department Care Team (Late st Contact Info) Description 2004 Outpatient Historical [facility] Pediatric[facility] [place] [address] [facility] [place] [address] Apple Long MD [address] [phone] Social History Tobacco Use Types Packs/Day Years Used Date Smoking Tobacco: Never Assessed Comments Unknown Sex and Gender Information Value Date Recorded Sex Assigned at Not on file Legal Sex Female 4:32 AM HOSPICE COMMUNITY LIAISON Gender Identity Not on file Sexual Orientation Not on file documented as of this encounter Plan of Treatment Not on file documented as of this encounter Procedures Procedure Name Priority Date/Time Associated Diagnosis Comments CHG POLIOVIRUS IPV VFC 2004 12:00 AM HOSPICE COMMUNITY LIAISON documented in this encounter Visit Diagnoses Not on filedocumented in this encounter Care Teams Decommissioning Well Site Manager Relationship Specialty Start Date End Date Apple Long MD PCP - General 04/01/08 documented as of this encounter
--- OUTSIDE RECORDS SUMMARY | 2024-12-05 21:17 | XMS_ITS | Encounter Summary ---
Author Organization [facility] Address [address] [place] [address] Care Team Providers Care Closing Machine Operator Name Role Phone Apple Long MD Primary Care Provider Encounter Details Date Type Department Care Team (Late st Contact Info) Description 03/22/[address] [facility] Pediatric[facility] [place] [address] [facility] [place] [address] Apple Long MD [address] [phone] Social History Tobacco Use Types Packs/Day Years Used Date Smoking Tobacco: Never Assessed Comments Unknown Sex and Gender Information Value Date Recorded Sex Assigned at Not on file Legal Sex Female 4:32 AM HEAD COOK Gender Identity Not on file Sexual Orientation Not on file documented as of this encounter Plan of Treatment Not on file documented as of this encounter Procedures Procedure Name Priority Date/Time Associated Diagnosis Comments CHG PNEUMOCOCCAL VACCINE <5 YO IM VFC 03/22/2005 12:00 AM CDT documented in this encounter Visit Diagnoses Not on filedocumented in this encounter Care Teams Closing Machine Operator Relationship Specialty Start Date End Date Apple Long MD PCP - General 9/9/08 documented as of this encounter
--- OUTSIDE RECORDS SUMMARY | 2024-12-05 21:17 | XMS_ITS | Encounter Summary ---
Author Organization [facility] Address [address] [place] [address] Care Team Providers Care Pantograph Engraver Name Role Phone Apple Long MD Primary Care Provider Encounter Details Date Type Department Care Team (Late st Contact Info) Description 04/18/2005 Outpatient Historical [facility] Pediatric[facility] [place] [address] [place] [address] Apple Long MD [address] [phone] Social History Tobacco Use Types Packs/Day Years Used Date Smoking Tobacco: Never Assessed Comments Unknown Sex and Gender Information Value Date Recorded Sex Assigned at Not on file Legal Sex Female 4:32 AM PROJECT SURVEYOR Gender Identity Not on file Sexual Orientation Not on file documented as of this encounter Plan of Treatment Not on file documented as of this encounter Visit Diagnoses Not on filedocumented in this encounter Care Teams Pantograph Engraver Relationship Specialty Start Date End Date Apple Long MD PCP - General 04/01/08 documented as of this encounter
--- OUTSIDE RECORDS SUMMARY | 2024-12-05 21:17 | XMS_ITS | Encounter Summary ---
Author Organization [facility] Address [address] [place] [address] Care Team Providers Care Oral And Maxillofacial Surgery Name Role Phone Apple Long MD Primary Care Provider Encounter Details Date Type Department Care Team (Late st Contact Info) Description 01/11/2008 Outpatient Historical [facility] Pediatric[facility] [place] [address] [facility] [place] [address] Nani Muhammad MD [address] [place] [phone] Social History Tobacco Use Types Packs/Day Years Used Date Smoking Tobacco: Never Assessed Comments Unknown Sex and Gender Information Value Date Recorded Sex Assigned at Not on file Legal Sex Female 4:32 AM CIGARETTE ROLLER Gender Identity Not on file Sexual Orientation Not on file documented as of this encounter Plan of Treatment Not on file documented as of this encounter Visit Diagnoses Not on filedocumented in this encounter Care Teams Oral And Maxillofacial Surgery Relationship Specialty Start Date End Date Apple Long MD PCP - General 04/01/08 documented as of this encounter
--- OUTSIDE RECORDS SUMMARY | 2024-12-05 21:17 | XMS_ITS | Encounter Summary ---
Author Organization [facility] Address [address] [place] [address] Care Team Providers Care Technical Consultant Name Role Phone Apple Long MD Primary Care Provider Encounter Details Date Type Department Care Team (Late st Contact Info) Description 07/05/2007 Outpatient Historical [facility] Pediatrics [place] [address] [facility] [place] [address] Apple Long MD [address] [phone] Social History Tobacco Use Types Packs/Day Years Used Date Smoking Tobacco: Never Assessed Comments Unknown Sex and Gender Information Value Date Recorded Sex Assigned at Not on file Legal Sex Female 4:32 AM DIGITAL ADVERTISING SPECIALIST Gender Identity Not on file Sexual Orientation Not on file documented as of this encounter Plan of Treatment Not on file documented as of this encounter Visit Diagnoses Not on filedocumented in this encounter Care Teams Technical Consultant Relationship Specialty Start Date End Date Apple Long MD PCP - General 04/01/08 documented as of this encounter
--- OUTSIDE RECORDS SUMMARY | 2024-12-05 21:17 | XMS_ITS | Encounter Summary ---
Author Organization [facility] Address [address] [place] [address] Care Team Providers Care Heat And Frost Insulator Helper Name Role Phone Apple Long MD Primary Care Provider Encounter Details Date Type Department Care Team (Late st Contact Info) Description 07/05/2007 Outpatient Historical [facility] Pediatrics [place] [address] [facility] [place] [address] Apple Long MD [address] [phone] Social History Tobacco Use Types Packs/Day Years Used Date Smoking Tobacco: Never Assessed Comments Unknown Sex and Gender Information Value Date Recorded Sex Assigned at Not on file Legal Sex Female 4:32 AM COMMUNITY SERVICE COORDINATOR Gender Identity Not on file Sexual Orientation Not on file documented as of this encounter Plan of Treatment Not on file documented as of this encounter Visit Diagnoses Not on filedocumented in this encounter Care Teams Heat And Frost Insulator Helper Relationship Specialty Start Date End Date Apple Long MD PCP - General 04/01/08 documented as of this encounter
--- OUTSIDE RECORDS SUMMARY | 2024-12-05 21:17 | XMS_ITS | Encounter Summary ---
Author Organization [facility] Address [address] [place] [address] Care Team Providers Care Belt Fixer Name Role Phone Apple Long MD Primary Care Provider Encounter Details Date Type Department Care Team (Late st Contact Info) Description 01/11/2005 Outpatient Historical [facility] Pediatric[facility] [place] [address] [facility] [place] [address] Apple Long MD [address] [phone] Social History Tobacco Use Types Packs/Day Years Used Date Smoking Tobacco: Never Assessed Comments Unknown Sex and Gender Information Value Date Recorded Sex Assigned at Not on file Legal Sex Female 4:32 AM BUTT SAWYER Gender Identity Not on file Sexual Orientation [...] on filedocumented in this encounter Care Teams Belt Fixer Relationship Specialty Start Date End Date Apple Long MD PCP - General 04/01/08 documented as of this encounter
--- OUTSIDE RECORDS SUMMARY | 2024-12-05 21:17 | XMS_ITS | Encounter Summary ---
Author Organization [facility] Address [address]: [place] [address] Care Team Providers Care Entry Level Management Name Role Phone Apple Long MD Primary Care Provider Encounter Details Date Type Department Care Team (Late st Contact Info) Description 01/11/2008 Outpatient Historical Apple Long MD [address] [phone] Social History Tobacco Use Types Packs/Day Years Used Date Smoking Tobacco: Never Assessed Comments Unknown Sex and Gender Information Value Date Recorded Sex Assigned at Not on file Legal Sex Female 4:32 AM POLICE OFFICER CRIME PREVENTION Gender Identity Not on file Sexual Orientation Not on file documented as of this encounter Plan of Treatment Not on file documented as of this encounter Visit Diagnoses Not on filedocumented in this encounter Care Teams Entry Level Management Relationship Specialty Start Date End Date Apple Long MD PCP - General 04/01/08 documented as of this encounter
--- OUTSIDE RECORDS SUMMARY | 2024-12-05 21:17 | XMS_ITS | Encounter Summary ---
Author Organization [facility] Address [address] [place] [address] Care Team Providers Care Body Designer Name Role Phone Apple Long MD Primary Care Provider Encounter Details Date Type Department Care Team (Late st Contact Info) Description 07/08/2005 Outpatient Historical [facility] Pediatrics [place] [address] [place] [address] Apple Long MD [address] [phone] Social History Tobacco Use Types Packs/Day Years Used Date Smoking Tobacco: Never Assessed Comments Unknown Sex and Gender Information Value Date Recorded Sex Assigned at Not on file Legal Sex Female 4:32 AM OUTREACH CONSULTANT Gender Identity Not on file Sexual Orientation Not on file documented as of this encounter Last Filed Vital Signs Vital Sign Reading Time Taken Comments Blood Pressure - - Pulse - - Temperature - - Respiratory Rate - - Oxygen Saturation - - Inhaled Oxygen Concentration - - Weight 8.845 kg (19 lb 8 oz) 07/08/2005 3:00 PM OUTREACH CONSULTANT Height 69.2 cm (2' 3.25 ) 07/08/2005 3:00 PM OUTREACH CONSULTANT Beudzv-uqa-Aczfhv Percentile 86.18% 07/08/2005 3 :00 PM OUTREACH CONSULTANT Growth Chart: WHO (Girls, 0- 2 years) Head Circumference 455 cm 07/08/2005 3:00 PM OUTREACH CONSULTANT Head Circumference Percentile 100.00% 07/08/2005 3:00 PM OUTREACH CONSULTANT Growth Chart: WHO (Girls, 0- 2 years) Body Mass Index 18.46 07/08/2005 3:00 PM OUTREACH CONSULTANT Body Mass Index Percentile 89.34% 07/08/2005 3:0 0 PM OUTREACH CONSULTANT Growth Chart: WHO (Girls, 0- 2 years) documented in this encounter Plan of Treatment Not on file documented as of this encounter Procedures Procedure Name Priority Date/Time Associated Diagnosis Comments CHG HEPATITIS B VACCINE PED ADOL IM 3 DOSE VFC 07/08/2005 12:00 AM OUTREACH CONSULTANT CHG POLIOVIRUS IPV VFC 5 12:00 AM OUTREACH CONSULTANT CHG INFLUENZA VACCINE SPLIT 6-35 MO PF IM VFC 07/08/2005 12:00 AM OUTREACH CONSULTANT documented in this encounter Visit Diagnoses Not on filedocumented in this encounter Care Teams Body Designer Relationship Specialty Start Date End Date Apple Long MD PCP - General 04/01/08 documented as of this encounter
--- OUTSIDE RECORDS SUMMARY | 2024-12-05 21:17 | XMS_ITS | Encounter Summary ---
Author Organization [facility] Address [address] [place] [address] Care Team Providers Care Hair And Makeup Designer Name Role Phone Apple Long MD Primary Care Provider [phone] Encounter Details Date Type Department Care Team (Late st Contact Info) Description 2004 Outpatient Historical [facility] Pediatrics [place] [address] [facility] [place] [address] Apple Long MD [address] [phone] Social History Tobacco Use Types Packs/Day Years Used Date Smoking Tobacco: Never Assessed Comments Unknown Sex and Gender Information Value Date Recorded Sex Assigned at Not on file Legal Sex Female 4:32 AM SECURITY PROGRAM MANAGER Gender Identity Not on file Sexual Orientation Not on file documented as of this encounter Plan of Treatment Not on file documented as of this encounter Visit Diagnoses Not on filedocumented in this encounter Care Teams Hair And Makeup Designer Relationship Specialty Start Date End Date Apple Long MD PCP - General 04/01/08 documented as of this encounter
--- OUTSIDE RECORDS SUMMARY | 2024-12-05 21:17 | XMS_ITS | Encounter Summary ---
Author Organization [facility] Address [address] [place] [address] Care Team Providers Care College Teacher Name Role Phone Apple Long MD Primary Care Provider Encounter Details Date Type Department Care Team (Late st Contact Info) Description 02/13/[address] [facility] Pediatric[facility] [place] [address] [facility] [place] [place] [address] Apple Long MD [address] [phone] Social History Tobacco Use Types Packs/Day Years Used Date Smoking Tobacco: Never Assessed Comments Unknown Sex and Gender Information Value Date Recorded Sex Assigned at Not on file Legal Sex Female 4:32 AM BALLING HEAD TENDER Gender Identity Not on file Sexual Orientation Not on file documented as of this encounter Plan of Treatment Not on file documented as of this encounter Visit Diagnoses Not on filedocumented in this encounter Care Teams College Teacher Relationship Specialty Start Date End Date Apple Long MD PCP - General 04/01/08 documented as of this encounter
--- OUTSIDE RECORDS SUMMARY | 2024-12-05 21:17 | XMS_ITS | Encounter Summary ---
Author Organization [facility] Address [address] [place] [address] Care Team Providers Care Disc Ruler Operator Name Role Phone Apple Long MD Primary Care Provider Encounter Details Date Type Department Care Team (Late st Contact Info) Description 01/11/2005 Outpatient Historical [facility] Pediatrics [place] [address] [place] [address] Apple Long MD [address] [phone] Social History Tobacco Use Types Packs/Day Years Used Date Smoking Tobacco: Never Assessed Comments Unknown Sex and Gender Information Value Date Recorded Sex Assigned at Not on file Legal Sex Female 4:32 AM COLD HEADER Gender Identity Not on file Sexual Orientation Not on file documented as of this encounter Plan of Treatment Not on file documented as of this encounter Procedures Procedure Name Priority Date/Time Associated Diagnosis Comments CHG POLIOVIRUS IPV VFC 01/11/2005 12:00 AM CDT documented in this encounter Visit Diagnoses Not on filedocumented in this encounter Care Teams Disc Ruler Operator Relationship Specialty Start Date End Date Apple Long MD PCP - General 04/01/08 documented as of this encounter
--- OUTSIDE RECORDS SUMMARY | 2024-12-05 21:17 | XMS_ITS | Encounter Summary ---
Author Organization [facility] Address [address] [place] [address] Care Team Providers Care Linux Unix Administrator Name Role Phone Apple Long MD Primary Care Provider [phone] Encounter Details Date Type Department Care Team (Late st Contact Info) Description 05/07/2007 Outpatient Historical [facility] [place] [address] [facility] [place] [address] Apple Long MD [address] [address] Social History Tobacco Use Types Packs/Day Years Used Date Smoking Tobacco: Never Assessed Comments Unknown Sex and Gender Information Value Date Recorded Sex Assigned at Not on file Legal Sex Female 4:32 AM SOLAR INSTALLER Gender Identity Not on file Sexual Orientation [...] on filedocumented in this encounter Care Teams Linux Unix Administrator Relationship Specialty Start Date End Date Apple Long MD PCP - General 04/01/08 documented as of this encounter
--- OUTSIDE RECORDS SUMMARY | 2024-12-05 21:17 | XMS_ITS | Encounter Summary ---
Author Organization [facility] Address [address] [place] [address] Care Team Providers Care Compliance Associate Name Role Phone Apple Long MD Primary Care Provider Encounter Details Date Type Department Care Team (Late st Contact Info) Description 03/22/2005 Outpatient Historical [facility] [place] [address] [facility] [place] [address] Apple Long MD [address] [address] Social History Tobacco Use Types Packs/Day Years Used Date Smoking Tobacco: Never Assessed Comments Unknown Sex and Gender Information Value Date Recorded Sex Assigned at Not on file Legal Sex Female 4:32 AM DEVELOPMENTAL THERAPIST Gender Identity Not on file Sexual Orientation [...] on filedocumented in this encounter Care Teams Compliance Associate Relationship Specialty Start Date End Date Apple Long MD PCP - General 04/01/08 documented as of this encounter
--- OUTSIDE RECORDS SUMMARY | 2024-12-05 21:17 | XMS_ITS | Encounter Summary ---
Author Organization [facility] Address [address] [place] [address] Care Team Providers Care Contract Administrative Assistant Name Role Phone Apple Long MD Primary Care Provider [phone] Encounter Details Date Type Department Care Team (Late st Contact Info) Description 02/13/2006 Outpatient Historical [facility] Pediatric[facility] [place] [address] [facility] [place] [address] Apple Long MD [address] [address] Social History Tobacco Use Types Packs/Day Years Used Date Smoking Tobacco: Never Assessed Comments Unknown Sex and Gender Information Value Date Recorded Sex Assigned at Not on file Legal Sex Female 4:32 AM MOLD PRESSER Gender Identity Not on file Sexual Orientation Not on file documented as of this encounter Plan of Treatment Not on file documented as of this encounter Visit Diagnoses Not on filedocumented in this encounter Care Teams Contract Administrative Assistant Relationship Specialty Start Date End Date Apple Long MD PCP - General 04/01/08 documented as of this encounter
--- OUTSIDE RECORDS SUMMARY | 2024-12-05 21:17 | XMS_ITS | Clinical Summary ---
Author Organization [facility] Administrative Offices Address [address] [place] [address] Care Team Providers Care Transition Manager Name Role Phone Apple Long MD Primary Care Provider [phone] Allergies Active Allergy Reactions Criticality Noted Date [...] on file Legal Sex Female 4:32 AM PELT SHEARER Gender Identity Not on file Sexual Orientation [...] VACCINES Completed 07/08/2005, 03/22/2005, 2004 Care Teams Transition Manager Relationship Specialty Start Date End Date Apple Long MD PCP - General 04/01/08
--- OUTSIDE RECORDS SUMMARY | 2024-12-05 21:17 | XMS_ITS | Encounter Summary ---
Author Organization [facility] Address [address] [place] [address] Care Team Providers Care Automobile Rental Representative Name Role Phone Apple Long MD Primary Care Provider Encounter Details Date Type Department Care Team (Late st Contact Info) Description 2004 Outpatient Historical [facility] Pediatric[facility] [place] [address] [facility] [place] [address] Apple Long MD [address] [address] Social History Tobacco Use Types Packs/Day Years Used Date Smoking Tobacco: Never Assessed Comments Unknown Sex and Gender Information Value Date Recorded Sex Assigned at Not on file Legal Sex Female 4:32 AM INTERNET APPLICATION DEVELOPER Gender Identity Not on file Sexual Orientation Not on file documented as of this encounter Plan of Treatment Not on file documented as of this encounter Procedures Procedure Name Priority Date/Time Associated Diagnosis Comments CHG DTAP VACCINE <7 YO IM VFC 2004 12:00 AM INTERNET APPLICATION DEVELOPER CHG PNEUMOCOCCAL VACCINE <5 YO IM VFC 2004 12:00 AM INTERNET APPLICATION DEVELOPER CHG HIB PRP-T VACCINE IM 4 DOSE VFC 2004 12:00 AM INTERNET APPLICATION DEVELOPER documented in this encounter Visit Diagnoses Not on filedocumented in this encounter Care Teams Automobile Rental Representative Relationship Specialty Start Date End Date Apple Long MD PCP - General 04/01/08 documented as of this encounter
--- OUTSIDE RECORDS SUMMARY | 2024-12-05 21:17 | XMS_ITS | Encounter Summary ---
Author Organization [facility] Address [address] [place] [address] Care Team Providers Care Armature And Rotor Winder Name Role Phone Apple Long MD Primary Care Provider Encounter Details Date Type Department Care Team (Late st Contact Info) Description 2004 Outpatient Historical [facility] Pediatric[facility] [place] [address] [facility] [place] [address] Apple Long MD [address] [address] Social History Tobacco Use Types Packs/Day Years Used Date Smoking Tobacco: Never Assessed Comments Unknown Sex and Gender Information Value Date Recorded Sex Assigned at Not on file Legal Sex Female 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
--- OUTSIDE RECORDS SUMMARY | 2024-12-05 21:17 | XMS_ITS | Encounter Summary ---
Author Organization [facility] Address [address] [place] [address] Care Team Providers Care Ink Maker Name Role Phone Apple Long MD Primary Care Provider Encounter Details Date Type Department Care Team (Late st Contact Info) Description 06/29/2005 Outpatient Historical [facility] Pediatrics [place] [address] [facility] [address] Apple Long MD [address] [address] Social History Tobacco Use Types Packs/Day Years Used Date Smoking Tobacco: Never Assessed Comments Unknown Sex and Gender Information Value Date Recorded Sex Assigned at Not on file Legal Sex Female 4:32 AM ANIMAL MAINTENANCE SUPERVISOR Gender Identity Not on file Sexual Orientation Not on file documented as of this encounter Plan of Treatment Not on file documented as of this encounter Visit Diagnoses Not on filedocumented in this encounter Care Teams Ink Maker Relationship Specialty Start Date End Date Apple Long MD PCP - General 04/01/08 documented as of this encounter
--- OUTSIDE RECORDS SUMMARY | 2024-12-05 21:17 | XMS_ITS | Encounter Summary ---
Author Organization [facility] Address [address] [place] [address] Care Team Providers Care Research Neuropsychologist Name Role Phone Apple Long MD Primary Care Provider Encounter Details Date Type Department Care Team (Late st Contact Info) Description 2004 Outpatient Historical [facility] Pediatric[facility] [place] [address] [facility] [place] [address] Apple Long MD [address] [phone] Social History Tobacco Use Types Packs/Day Years Used Date Smoking Tobacco: Never Assessed Comments Unknown Sex and Gender Information Value Date Recorded Sex Assigned at Not on file Legal Sex Female 4:32 AM TENTMAKER Gender Identity Not on file Sexual Orientation Not on file documented as of this encounter Plan of Treatment Not on file documented as of this encounter Procedures Procedure Name Priority Date/Time Associated Diagnosis Comments CHG HEPATITIS B VACCINE PED ADOL IM 3 DOSE VFC 2004 12:00 AM TENTMAKER documented in this encounter Visit Diagnoses Not on filedocumented in this encounter Care Teams Research Neuropsychologist Relationship Specialty Start Date End Date Apple Long MD PCP - General 04/01/08 documented as of this encounter
--- OUTSIDE RECORDS SUMMARY | 2024-12-05 21:18 | XMS_ITS | Encounter Summary ---
Author Organization [facility] Address [address] [place] [address] Care Team Providers Care Rolled Seat Trimmer Name Role Phone Apple Long MD Primary Care Provider Encounter Details Date Type Department Care Team (Late st Contact Info) Description 12/07/2005 Outpatient Historical [facility] Pediatrics [place] [address] [place] [address] Apple Long MD [address] [phone] Social History Tobacco Use Types Packs/Day Years Used Date Smoking Tobacco: Never Assessed Comments Unknown Sex and Gender Information Value Date Recorded Sex Assigned at Not on file Legal Sex Female 4:32 AM GENERAL STORE MANAGER Gender Identity Not on file Sexual Orientation Not on file documented as of this encounter Plan of Treatment Not on file documented as of this encounter Visit Diagnoses Not on filedocumented in this encounter Care Teams Rolled Seat Trimmer Relationship Specialty Start Date End Date Apple Long MD PCP - General 04/01/08 documented as of this encounter
--- OUTSIDE RECORDS SUMMARY | 2024-12-05 21:18 | XMS_ITS | Encounter Summary ---
Author Organization [facility] Address [address] [place] [address] Care Team Providers Care Adjunct English Instructor Name Role Phone Apple Long MD Primary Care Provider Encounter Details Date Type Department Care Team (Late st Contact Info) Description 09/08/2005 Outpatient Historical [facility] Pediatric[facility] [place] [address] [facility] [place] [address] Apple Long MD [address] [address] Social History Tobacco Use Types Packs/Day Years Used Date Smoking Tobacco: Never Assessed Comments Unknown Sex and Gender Information Value Date Recorded Sex Assigned at Not on file Legal Sex Female 4:32 AM CABLE TELEVISION TECHNICIAN Gender Identity Not on file Sexual Orientation Not on file documented as of this encounter Plan of Treatment Not on file documented as of this encounter Visit Diagnoses Not on filedocumented in this encounter Care Teams Adjunct English Instructor Relationship Specialty Start Date End Date Apple Long MD PCP - General 04/01/08 documented as of this encounter
--- OUTSIDE RECORDS SUMMARY | 2024-12-05 21:18 | XMS_ITS | Encounter Summary ---
Author Organization [facility] Address [address] [place] [address] Care Team Providers Care Carbon Rod Inserter Name Role Phone Apple Long MD Primary Care Provider [phone] Encounter Details Date Type Department Care Team (Late st Contact Info) Description 08/19/2006 Orders Only [facility] Pediatric[facility] [place] [address] [facility] [place] [address] Apple Long MD [address] [address] Social History Tobacco Use Types Packs/Day Years Used Date Smoking Tobacco: Never Assessed Comments Unknown Sex and Gender Information Value Date Recorded Sex Assigned at Not on file Legal Sex Female 4:32 AM BUILDING APPRAISER Gender Identity Not on file Sexual Orientation [...] CURRENT ALLERGY LIST: NO KNOWN ALLERGIES MEDICATIONS: [id number], pedialyte CHIEF COMPLAINT: The child is here [...] on filedocumented in this encounter Care Teams Carbon Rod Inserter Relationship Specialty Start Date End Date Apple Long MD PCP - General 04/01/08 documented as of this encounter
--- OUTSIDE RECORDS SUMMARY | 2024-12-05 21:18 | XMS_ITS | Encounter Summary ---
Author Organization [facility] Address [address] [place] [address] Care Team Providers Care Maintenance Technician 2Nd Shift Name Role Phone Apple Long MD Primary Care Provider Encounter Details Date Type Department Care Team (Late st Contact Info) Description 09/08/2005 Orders Only [facility] Pediatric[facility] [place] [address] [facility] [place] [address] Apple Long MD [address] [address] Social History Tobacco Use Types Packs/Day Years Used Date Smoking Tobacco: Never Assessed Comments Unknown Sex and Gender Information Value Date Recorded Sex Assigned at Not on file Legal Sex Female 4:32 AM DAY SPA MANAGER Gender Identity Not on file Sexual [...] on filedocumented in this encounter Care Teams Maintenance Technician 2Nd Shift Relationship Specialty Start Date End Date Apple Long MD PCP - General 04/01/08 documented as of this encounter
--- OUTSIDE RECORDS SUMMARY | 2024-12-05 21:18 | XMS_ITS | Encounter Summary ---
Author Organization [facility] Address [address] [place] [address] Care Team Providers Care Production Mechanic Tin Cans Name Role Phone Apple Long MD Primary Care Provider Encounter Details Date Type Department Care Team (Late st Contact Info) Description 09/26/2005 Outpatient Historical [facility] Pediatrics [place] [address] [facility] [place] [address] Apple Long MD [address] [address] Social History Tobacco Use Types Packs/Day Years Used Date Smoking Tobacco: Never Assessed Comments Unknown Sex and Gender Information Value Date Recorded Sex Assigned at Not on file Legal Sex Female 4:32 AM BUNDLE SORTER Gender Identity Not on file Sexual Orientation Not on file documented as of this encounter Plan of Treatment Not on file documented as of this encounter Visit Diagnoses Not on filedocumented in this encounter Care Teams Production Mechanic Tin Cans Relationship Specialty Start Date End Date Apple Long MD PCP - General 04/01/08 documented as of this encounter
--- OUTSIDE RECORDS SUMMARY | 2024-12-05 21:18 | XMS_ITS | Continuity of Care Document ---
Author Organization [facility] Address [address] [place] [address] Phone Care Team Providers Care Human Resource Adviser Name Role Phone Threronald PT, Jemima Unavailable [...] Date Provider Providers Copied on Encounter [facility], [address] [address], [place], [place], [id number], tel:[phone] [place] No Information 0 Della Onofre. . Referring Provider: Anjana Serrano, [address] [place], [address]. tel:[phone] [facility], [address], [place], [place], [id number], [place] tel:[phone] [place] No Information Mar-1 2-202 0 Makler Luke. . Referring Provider: Anjana Bhatia Maggie, [address] [place], [address]. tel:[phone] [facility], [address] [facility] [address], [place], [place], [id number], [place] tel:[phone] [place] No Information Mar-0 6-202 0 Threlkeld Jemima. . Referring Provider: Anjana Bhatia Maggie, [address] [place], [address]. tel:[phone] [facility], [address] [address], [place], [place], [id number], tel:[phone] [place] No Information Mar-0 5-202 0 Makler Luke. . Referring Provider: Anjana Bhatia Maggie, [facility] [place], [address]. tel:[phone] [facility], [address] [address], [place], [place], [id number], [place] tel:[phone] [place] No Information b-2 8- 0 Threlkeld Jemima. . Referring Provider: Anjana Bhatia Maggie, [address] [facility], [place], [address]. tel:[phone] [facility], [address] [address], [place], [place], [id number], [place] tel:[phone] [place] No Information b-2 7- 0 Shaheenhoffer Rekha. . Referring Provider: Anjana M Maggie, [address] [place], [address]. tel:[phone] [facility], [address] [facility] [address], [place], [place], [id number], [place] tel:[phone] [place] No Information b- 7-202 0 Threlkeld Jemima. . Referring Provider: Anjana M Maggie, [address] [facility] [place], [address]. tel:[phone] Family History Family Member Type Diagnosis Age At Onset No Information Payers Payer name Insurance type Covered constitution party ID Authorronaldoa malgorzata(s) [facility] [id number] Social History Type Description Quantity Date Captured [...]
--- OUTSIDE RECORDS SUMMARY | 2024-12-05 21:18 | XMS_ITS | Encounter Summary ---
Author Organization [facility] Address [address] [place] [address] Care Team Providers Care Knuckle Bender Name Role Phone Apple Long MD Primary Care Provider Encounter Details Date Type Department Care Team (Late st Contact Info) Description 09/26/2005 Orders Only [facility] Pediatric[place] [address] [facility] [place] [place] [address] Apple Long MD [address] [address] Social History Tobacco Use Types Packs/Day Years Used Date Smoking Tobacco: Never Assessed Comments Unknown Sex and Gender Information Value Date Recorded Sex Assigned at Not on file Legal Sex Female 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
--- OUTSIDE RECORDS SUMMARY | 2024-12-05 21:18 | XMS_ITS | Encounter Summary ---
Author Organization [facility] Address [address] [place] [address] Care Team Providers Care Deburrer Machine Name Role Phone Apple Long MD Primary Care Provider [phone] Encounter Details Date Type Department Care Team (Late st Contact Info) Description 2004 Outpatient Historical [facility] Pediatric[place] [address] [facility] [place] [address] Apple Long MD [address] [address] Social History Tobacco Use Types Packs/Day Years Used Date Smoking Tobacco: Never Assessed Comments Unknown Sex and Gender Information Value Date Recorded Sex Assigned at Not on file Legal Sex Female 4:32 AM ENVIRONMENTAL PROFESSIONAL Gender Identity Not on file Sexual Orientation Not on file documented as of this encounter Plan of Treatment Not on file documented as of this encounter Visit Diagnoses Not on filedocumented in this encounter Care Teams Deburrer Machine Relationship Specialty Start Date End Date Apple Long MD PCP - General 04/01/08 documented as of this encounter
--- OUTSIDE RECORDS SUMMARY | 2024-12-05 21:18 | XMS_ITS | Encounter Summary ---
Author Organization [facility] Address [address] [place] [address] Care Team Providers Care Outboard System Operator Name Role Phone Apple Long MD Primary Care Provider [phone] Encounter Details Date Type Department Care Team (Late st Contact Info) Description 08/19/2006 Outpatient Historical [facility] Pediatric[place] [address] [facility] [place] [address] Apple Long MD [address] [address] Social History Tobacco Use Types Packs/Day Years Used Date Smoking Tobacco: Never Assessed Comments Unknown Sex and Gender Information Value Date Recorded Sex Assigned at Not on file Legal Sex Female 4:32 AM FIRE PROTECTION ENGINEERING TECHNICIAN Gender Identity Not on file Sexual Orientation Not on file documented as of this encounter Last Filed Vital Signs Vital Sign Reading Time Taken Comments Blood Pressure - - Pulse - - Temperature 36.6 C (97.8 F) 08/19/2006 10:45 AM FIRE PROTECTION ENGINEERING TECHNICIAN Respiratory Rate - - Oxygen Saturation - - Inhaled Oxygen Concentration - - Weight 11.4 kg (25 lb 1.6 oz) 08/19/2006 10:45 A M FIRE PROTECTION ENGINEERING TECHNICIAN Height - - Body Mass Index - - documented in this encounter Plan of Treatment Not on file documented as of this encounter Visit Diagnoses Not on filedocumented in this encounter Care Teams Outboard System Operator Relationship Specialty Start Date End Date Apple Long MD PCP - General 04/01/08 documented as of this encounter
--- OUTSIDE RECORDS SUMMARY | 2024-12-05 21:18 | XMS_ITS | Encounter Summary ---
Author Organization [facility] Address [address] [place] [address] Care Team Providers Care Legal Billing Clerk Name Role Phone Apple Long MD Primary Care Provider [phone] Encounter Details Date Type Department Care Team (Late st Contact Info) Description 02/02/2006 Outpatient Historical [facility] Pediatrics [place] [address] [facility] [place] [address] Apple Long MD [address] [address] Social History Tobacco Use Types Packs/Day Years Used Date Smoking Tobacco: Never Assessed Comments Unknown Sex and Gender Information Value Date Recorded Sex Assigned at Not on file Legal Sex Female 4:32 AM DRAFTING INSTRUCTOR Gender Identity Not on file Sexual Orientation Not on file documented as of this encounter Plan of Treatment Not on file documented as of this encounter Visit Diagnoses Not on filedocumented in this encounter Care Teams Legal Billing Clerk Relationship Specialty Start Date End Date Apple Long MD PCP - General 04/01/08 documented as of this encounter
--- OUTSIDE RECORDS SUMMARY | 2024-12-05 21:18 | XMS_ITS | Encounter Summary ---
Author Organization [facility] Address [address] [place] [address] Care Team Providers Care Cashier Credit Name Role Phone Apple Long MD Primary Care Provider Encounter Details Date Type Department Care Team (Late st Contact Info) Description 12/07/2005 Orders Only [facility] [place] [address] [facility] [place] [address] Rina [place] NP NO ADDRESS ON FILE Social History Tobacco Use Types Packs/Day Years Used Date Smoking Tobacco: Never Assessed Comments Unknown Sex and Gender Information Value Date Recorded Sex Assigned at Not on file Legal Sex Female 4:32 AM PLAYGROUND MONITOR Gender Identity Not on file Sexual Orientation Not on file documented as of this encounter Plan of Treatment Not on file documented as of this encounter Visit Diagnoses Not on filedocumented in this encounter Care Teams Cashier Credit Relationship Specialty Start Date End Date Apple Long MD PCP - General 04/01/08 documented as of this encounter
--- OUTSIDE RECORDS SUMMARY | 2024-12-05 21:18 | XMS_ITS | Encounter Summary ---
Author Organization [facility] Address [address] [place] [address] Care Team Providers Care Bioengineer Name Role Phone Apple Long MD Primary Care Provider [phone] Encounter Details Date Type Department Care Team (Late st Contact Info) Description 01/31/2007 Outpatient Historical [facility] [place] [address] [place] [address] Apple Long MD [address] [id number] Social History Tobacco Use Types Packs/Day Years Used Date Smoking Tobacco: Never Assessed Comments Unknown Sex and Gender Information Value Date Recorded Sex Assigned at Not on file Legal Sex Female 4:32 AM [employer] Gender Identity Not on file Sexual [...] 9.75 ) 01/31/2007 10:30 AM CD T Ixyitc-yji-Irvwtx Percentile 42.85% 01/31/2007 1 0:30 AM CDT Growth Chart: CDC (Girls, 2- 20 Years) Head Circumference 48.7 cm 01/31/2007 10:30 AM CD T Head Circumference Percentile 65.69% 01/31/2007 10:30 AM CDT Growth Chart: CDC (Girls, 0- 36 Months) Body Mass Index 16.13 01/31/2007 10:30 AM CDT Body Mass Index Percentile 52.29% 01/31/2007 10: 30 AM CDT Growth Chart: [facility] (Girls, 2- 20 Years) documented in this encounter Plan of Treatment Not on file documented as of this encounter Visit Diagnoses Not on filedocumented in this encounter Care Teams Bioengineer Relationship Specialty Start Date End Date Apple Long MD PCP - General 04/01/08 documented as of this encounter
[2024-12-05] MEDS: POTASSIUM CHLORIDE 20 MEQ PACKET (FOR LIQUID) 40 MEQ FEED TUBE (21:38)
[2024-12-05 22:06] VITALS: BP 92/53; PULSE 101; RESP 15; O2SAT 97
[2024-12-05 22:07] LABS: BEDSIDEPREGUCG Negative (Negative)
[2024-12-05 22:08] LABS: Add Urine Microscopic? YES; Appearance Urine Cloudy (Clear); Bacteria Urine 4+ /hpf; Bilirubin Urine Negative (Negative); Blood Urine Trace (Negative); Budding Yeast Urine Present /hpf; Color Urine Yellow (Yellow); Glucose Urine UA Negative (Negative); Ketones Urine 3+ mg/dL (Negative); Leukocyte Esterase Ur 2+ LEU/UL (Negative); Mucus Urine Present /lpf; Need Manual Microscopic Reviewed; Nitrate Urine Positive (Negative); Non Pathogenic Casts 0-2; Protein Urine 2+ mg/dL (Negative); RBC Urine 0-2 /hpf (0-2); Specific Grav Ur 1.016 (1.001-1.035); Squamous Epithelial Cell Urine Few /hpf (Few); WBC Urine 21-50 /hpf (0-3)
[2024-12-05 22:16] LABS: Creatine Kinase 40 U/L (30-135)
[2024-12-05 23:28] VITALS: BP 87/48; PULSE 96; RESP 22; O2SAT 97
[2024-12-06] VITALS (8 sets, daily range): BP systolic 91–109; BP diastolic 54–72; PULSE 83–107; RESP 12–22; TEMP 36.5–39.5; O2SAT 97–100; BMI 22.4
--- NOTE | 2024-12-06 00:55 | P.HP_ITS ---
H&P: HPI History of Present Illness Date/Time: 12/06/24 04:00 Chief Complaint: Nausea, vomiting, dysuria. Narrative: This is a 19-year-old female with history of urinary tract infection, depression, anxiety, and ADHD who presented to the emergency department for evaluation of fever, dysuria, and other symptoms. She gives a 3 day history of diffuse mid to lower back ache, dysuria, nausea, vomiting, chills, and subjective fever. Initially she thought that she was perhaps constipated she took a laxative without benefit. Each day she has felt worse and worse and decided to come in today for evaluation. She denies cold and flu symptoms, diarrhea, melena, hematochezia, hematuria, cough, and shortness of breath. In the ED: Vital signs on arrival include a temperature of 100.2° F, blood pressure 95/55, pulse 113, respiratory rate 20, SpO2 100% on room air. Labs were significant for a WBC count of 18.4, sodium 134, potassium 3.1, BUN 13, creatinine 1.19, anion gap 16. Urinalysis was positive for nitrates, 2+ leukocyte esterase, 3+ ketones, 4+ bacteria, and [address] of the abdomen and pelvis showed bilateral pyelonephritis, more on the left side. She was given ceftriaxone 1 g, potassium chloride 40 mEq, and 2 L of crystalloids. She is being admitted in this setting for further treatment. Review of Systems Review of Systems: 12 systems were reviewed and are negativ e except for as per HPI. [facility] Past Medical History Medical History (Updated 12/06/24 @ 04:54 by Maliha Velez PA-C) ADHD Depression Anxiety Surgical History Surgical History History of gynecological procedure (03/22/22) Aleyda iud removal and insertion Family History Family History Grandparent Breast cancer paternal grandmother Social History Social History (Updated 12/06/24 @ 04:52 by Maliha Velez PA-C) Social History: Surrogate medical decision maker: Kortney James, mother. Code status: Full code. Smoking status: Current every day smoker Tobacco type: e-cigarettes/vaping Alcohol intake: unknown Substance use: unknown Substance use type: marijuana Do You Feel Safe in your Home?: Yes Lack of Transportation: No Lack of Food: Never True Current Housing: I Have Housing Concerned About Future Housing: No Difficulty Paying Gas/Electric Bills: No Difficulty Paying for Meds: No Currently Unemployed: No Education: Decline to Answer Difficulty w/ Childcare or Family Care: Decline to Answer Additional living arrangements comments: Lives in the dorms during the school year, currently staying with mother. 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 Works at [employer]. Sexual Orientation (if Verbalized by the Patient): Bisexual Spiritual care concerns: No Meds Home Medications and Allergies Home Medications Medication Instructions Recorded Confirmed Type levonorgestrel 14 mcg/24 hr (up to 1 device intrauterine ONCE 03/22/22 07/30/24 History 3 yrs) 13.5 mg intrauterine device (Aleyda) Allergies Allergy/AdvReac Type Severity Reaction Status Date / Time clonazepam AdvReac Intermediate suicidal Verified 12/06/24 04:42 thoughts codeine AdvReac Intermediate Headache Verified 12/06/24 04:42 Penicillins AdvReac Rash Verified 12/06/24 04:42 Vital Signs Vital Signs - 24 hr 12/05/24 20:08 12/05/24 22:06 12/05/24 23:28 Temperature 100.2 F H Pulse Rate 113 H 101 H 96 Respiratory Rate 20 15 22 H Blood Pressure 95/55 L 92/53 L 87/48 L Pulse Oximetry 100 97 97 Oxygen Delivery Room Air 12/06/24 00:37 Temperature Pulse Rate 88 Respiratory Rate 12 Blood Pressure 98/65 L Pulse Oximetry 99 Oxygen Delivery Exam Narrative: General: Mildly ill-appearing female sitting up in bed in no acute distress. Weight: 52.2 kg. BMI: 22.5. HEENT: PERRL, EOMI. Sclera anicteric. Tacky mucous membranes. Neck: Supple. Respiratory: Lungs are clear to auscultation bilaterally. Cardiovascular: Regular rate and rhythm with S1-S2. Gastrointestinal: Abdomen is soft, nontender, and nondistended with positive bowel sounds. No CVA tenderness. Skin: Warm and dry. Extremities: No cyanosis, clubbing, or edema. Radial and pedal pulses intact. Neurological: Alert. Cranial nerves 2-12 are grossly intact. No gross focal deficits to casual conversation. Psychiatric: Pleasant and cooperative with normal mood and affect. Judgment and insight intact. H&P: Results Labs Labs: Short CBC 12/05/24 Range/Units 20:40 WBC 18.4 H (4.5-10.0) K/mm3 Hgb 12.3 (12.0-15.0) g/dL Hct 35.9 L (37.0-47.0) % Plt Count 160 (150-375) k/mm3 BMP 12/05/24 20:40 Sodium 134 L Potassium 3.1 L Chloride 99 Carbon Dioxide 19 L BUN 13 Creatinine 1.19 H Glucose 112 H Calcium 9.6 Cardiac Enzymes 12/05/24 Range/Units 20:40 Total Creatine Kinase 40 (30-135) U/L Troponin I < 0.012 (0.000-0.034) ng/mL Liver Function 12/05/24 Range/Units 20:40 Total Bilirubin 1.3 (0.2-1.3) mg/dL AST 32 (14-36) U/L ALT 26 (6-35) U/L Alkaline Phosphatase 68 (38-126) U/L Albumin 4.3 (3.5-5.1) g/dL Urine 12/05/24 Range/Units 21:44 Urine Color Yellow (Yellow) Urine Appearance Cloudy H (Clear) Urine pH 7.0 (5.0-9.0) Ur Specific [place] 1.016 (1.001-1.035) Urine Protein 2+ H (Negative) mg/dL Urine Glucose (UA) Negative (Negative) mg/dL Imaging Chest X-Ray 12/05/24 21:50 IMPRESSION: 1. No acute cardiopulmonary pathology. Abdomen/Pelvis CT 12/05/24 23:59 IMPRESSION: 1. Bilateral pyelonephritis more on the left side. Follow-up and clinical correlation advised. 2. No evidence of appendicitis, diverticulitis or intestinal obstruction. Assessment and Plan Assessment and plan (1) Sepsis: Code(s): A41.9 - Sepsis, unspecified organism Status: Acute (2) Pyelonephritis: Code(s): N12 - Tubulo-interstitial nephritis, not specified as acute or chronic Status: Acute (3) Acute kidney injury: Code(s): N17.9 - Acute kidney failure, unspecified Status: Acute (4) Dehydration: Code(s): E86.0 - Dehydration Status: Acute Plan The patient presented to the emergency department for evaluation of multiple symptoms including fever, nausea, vomiting, and dysuria as detailed in HPI. Labs, imaging, EKG, and all reports were personally reviewed. She meets sepsis criteria on arrival with fever, tachycardia, leukocytosis, and acute kidney injury in the setting of infection. CT scan shows bilateral pyelonephritis, left greater than right. She gives no history to suggest that she would be at risk for multidrug resistant organisms and she has been started on ceftriaxone, pending urine culture. Acute kidney injury is likely related to a combination of hypovolemia from dehydration and perhaps hypoperfusion from relative hypotension. There was no evidence of obstruction on CT scan. Blood pressures have improved with IV fluids and will be monitored closely. If no improvement with fluids alone, further workup will need to be pursued. I suspect her baseline blood pressures are at the lower end of normal and they will be monitored closely. Potassium was replaced and will be monitored. Her home medications will be reviewed and resumed as appropriate. Findings and treatment plan were discussed with the patient. Questions were solicited and answered to satisfaction. The patient's medical management will be taken over by the hospitalist team in a.m. Quality VTE Prophylaxis VTE prophylaxis: mechanical ordered If No VTE Prophylaxis Answer both mechanical and pharmacologic: Reason no pharmacologic proph: low risk/not indicated Hospitalist MIPS Advance Care Plan I have confirmed that the patient's Advanced Care Plan is present, code status is documented, or surrogate decision maker is listed in patient medical record.: Yes Medication Reconciliation I have utilized all available resources to obtain, update and review the patients current medications (includes all prescriptions, OTC, herbals, cannabis, and nutritional supplements).: Yes
[2024-12-06] MEDS: DEXTROSE 5%/0.9% SOD CHL 1,000 ML 75 ML IV CONT (01:04)
--- NOTE | 2024-12-06 04:24 | ADMGEN ---
This patient, Pooja Scherer, was admitted to [facility] Room 328-01. Patient/family oriented to hospital policies and general routines including ID bracelet, bed and alarms, visiting hours, pain management, procedures, bathroom and other care routines, personal items, smoking policy, room service/diet, and visiting hours. Information on how to activate the Rapid Response Team has been discussed. Patient/Family are encouraged to report perceived risks to care and to ask questions if they do not understand what they are told or what they should do.
[2024-12-06] MEDS: ONDANSETRON INJ 4 MG/2 ML VIAL IV PUSH ×3 (05:55→20:17)
[2024-12-06 06:58] LABS: Basophils Percent Auto 0.2 % (0.2-1.2); Hematocrit 32.4 % (37.0-47.0); Hemoglobin 10.9 g/dL (12.0-15.0); Immature Granulocyte Absolute 0.16 K/mm3 (0.00-0.031); Immature Granulocyte Percent A 1.1 % (0-0.5); Lymphocytes Percent Auto 5.6 % (18.3-44.2); Mean Corpuscular HGB Conc 33.6 g/dl (32-36); Mean Corpuscular Hemoglobin 28.6 pg (26-34); Mean Platelet Volume 11.9 fl (7.4-10.4); Monocytes Absolute Auto 1.5 K/mm3 (0.1-0.6); Monocytes Percent Auto 10.5 % (2.6-8.5); Neutrophils Absolute Auto 11.9 K/mm3 (1.3-6.7); Neutrophils Percent Auto 82.6 % (45.5-73.1); Platelet Count Result 147 k/mm3 (150-375); Red Blood Count 3.81 M/mm3 (4.2-5.4); White Blood Count 14.4 K/mm3 (4.5-10.0)
[2024-12-06 07:08] LABS: Anion Gap 11 mmol/L (4-12); Blood Urea Nitrogen 11 mg/dL (7-17); Calcium 8.4 mg/dL (8.4-10.2); Carbon Dioxide 19 mmol/L (22-30); Chloride 107 mmol/L (98-107); Estimated CRCL calculation 62 ml/min; Estimated Glomerular Filt Rate > 60; Glucose 117 mg/dL (65-110); Potassium 3.4 mmol/L (3.4-5.0); Sodium 137 mmol/L (137-145)
[2024-12-06] MEDS: cefTRIAXone 2 GM/NS 100 ML 2 GM/100 ML BAG IVPB (09:23)
[2024-12-06] MEDS: CALCIUM CARBONATE (TUMS) 500 MG (200 MG ELEMENTAL) PO (13:15)
[2024-12-06] MEDS: ACETAMINOPHEN 325 MG TABLET 650 MG PO (13:32)
--- NOTE | 2024-12-06 13:36 | P.PNIM_ITS ---
Progress Note: A&P Assessment and Plan (1) Sepsis: Qualifiers: Sepsis type: Escherichia coli Sepsis acute organ dysfunction status: with acute organ dysfunction Acute renal failure type: unspecified Severe sepsis shock status: without septic shock Code(s): A41.9 - Sepsis, unspecified organism Status: Acute (2) Pyelonephritis: Code(s): N12 - Tubulo-interstitial nephritis, not specified as acute or chronic Status: Acute (3) Acute kidney injury: Code(s): N17.9 - Acute kidney failure, unspecified Status: Acute (4) Dehydration: Code(s): E86.0 - Dehydration Status: Acute Plan sepsis secondary to UTI/ pyelonephritis with KELLY continue with Rocephin . increased to 2 gram reviewed previous U/C ecoli corea sensitive follow culture result IVF sepsis protocol Pyelonephritis plan as above Kelly IVF Continue to monitor hypotension likely baseline IVF Continue to monitor hypokalemia replete as needed discharge plan: in 2 days pending culture results Subjective Date/time seen: 12/06/24 13:36 Interval history: per HPi: Narrative: This is a 19-year-old female with history of urinary tract infection, depression, anxiety, and ADHD who presented to the emergency department for evaluation of fever, dysuria, and other symptoms. She gives a 3 day history of diffuse mid to lower back ache, dysuria, nausea, vomiting, chills, and subjective fever. Initially she thought that she was perhaps constipated she took a laxative without benefit. Each day she has felt worse and worse and decided to come in today for evaluation. She denies cold and flu symptoms, diarrhea, melena, hematochezia, hematuria, cough, and shortness of breath. In the ED: Vital signs on arrival include a temperature of 100.2° F, blood pressure 95/55, pulse 113, respiratory rate 20, SpO2 100% on room air. Labs were significant for a WBC count of 18.4, sodium 134, potassium 3.1, BUN 13, creatinine 1.19, anion gap 16. Urinalysis was positive for nitrates, 2+ leukocyte esterase, 3+ ketones, 4+ bacteria, and [address] of the abdomen and pelvis showed bilateral pyelonephritis, more on the left side. She was given ceftriaxone 1 g, potassium chloride 40 mEq, and 2 L of crystalloids. She is being admitted in this setting for further treatment. 12/06/24 Patient was seen and examined at bedside. she is feeling better. still has fever. nausea is better. back pain is better. has dysuria. continue treatment for pyelonephritis. follow culture results. Review of Systems Review of Systems: 12 systems were reviewed and are negativ e except for as per HPI. Exam Narrative: General: Mildly ill-appearing female sitting up in bed in no acute distress. Weight: 52.2 kg. BMI: 22.5. HEENT: PERRL, EOMI. Sclera anicteric. Tacky mucous membranes. Neck: Supple. Respiratory: Lungs are clear to auscultation bilaterally. Cardiovascular: Regular rate and rhythm with S1-S2. Gastrointestinal: Abdomen is soft, nontender, and nondistended with positive bowel sounds. No CVA tenderness. Skin: Warm and dry. Extremities: No cyanosis, clubbing, or edema. Radial and pedal pulses intact. Neurological: Alert. Cranial nerves 2-12 are grossly intact. No gross focal deficits to casual conversation. Psychiatric: Pleasant and cooperative with normal mood and affect. Judgment and insight intact. Objective Data Vital Signs Vital Signs: Vital Signs - 24 hr 12/05/24 20:08 12/05/24 22:06 12/05/24 23:28 Temperature 100.2 F H Pulse Rate 113 H 101 H 96 Respiratory Rate 20 15 22 H Blood Pressure 95/55 L 92/53 L 87/48 L Pulse Oximetry 100 97 97 Oxygen Delivery Room Air 12/06/24 00:37 12/06/24 01:31 12/06/24 01:45 Temperature 98.6 F 97.7 F Pulse Rate 88 95 90 Respiratory Rate 12 22 H 18 Blood Pressure 98/65 L 99/65 L 94/61 L Pulse Oximetry 99 97 98 Oxygen Delivery 12/06/24 04:30 12/06/24 04:30 12/06/24 09:23 Temperature 100.4 F H Pulse Rate 95 107 H Respiratory Rate 22 H 20 Blood Pressure 91/54 L Pulse Oximetry 97 100 Oxygen Delivery Room Air Room Air Intake/Output Intake/Output: Intake & Output 12/03/24 12/04/24 12/05/24 12/06/24 23:59 23:59 23:59 23:59 Intake Total 2049 660 Balance 2049 660 Meds/Results Medications: Active Medications Generic Name Dose Route Start Last Admin Trade Name Freq PRN Reason Stop Dose Admin Acetaminophen 650 mg 12/06/24 00:45 12/06/24 13:32 Acetaminophen 325 Mg Tablet PO 650 mg Q6H PRN Administration Mild Pain (1-3) or Fever Calcium Carbonate 200 mg 12/06/24 09:55 12/06/24 13:15 Calcium Carbonate (Tums) 500 Mg (200 Mg Elemental) PO 200 mg Q6H PRN Administration Indigestion Dextrose/Sodium Chloride 1,000 mls @ 75 mls/hr 12/06/24 00:47 12/06/24 01:04 Dextrose 5% Sodium Chloride 0.9% IV CONT 12/06/24 14:06 75 mls/hr .[id number] ONE Administration Ceftriaxone Sodium 2 gm in 100 mls @ 200 mls/hr 12/06/24 09:00 12/06/24 09:53 Rocephin 2 Gm/Ns 100 Ml IVPB Infused Q24H KATHI Infusion Ondansetron HCl 4 mg 12/06/24 09:55 12/06/24 13:14 Ondansetron Inj 4 Mg/2 Ml Vial IV PUSH 4 mg Q6H PRN Administration Nausea And Vomiting Radiology Results: ITS Impressions Chest X-Ray 12/05/24 21:50 IMPRESSION: No acute cardiopulmonary pathology. Abdomen/Pelvis CT 12/05/24 23:59 IMPRESSION: 1. Bilateral pyelonephritis more on the left side. Follow-up and clinical correlation advised. 2. No evidence of appendicitis, diverticulitis or intestinal obstruction. Labs Labs: Laboratory Results - last 24 hr 12/05/24 12/05/24 12/05/24 20:40 20:58 21:44 WBC 18.4 H RBC 4.24 Hgb 12.3 Hct 35.9 L MCV 84.7 MCH 29.0 MCHC 34.3 RDW 11.9 Plt Count 160 MPV 11.6 H Immature Gran % (Auto) 1.4 H Neut % (Auto) 83.4 H Lymph % (Auto) 3.4 L [place] % (Auto) 11.0 H Eos % (Auto) 0.5 Baso % (Auto) 0.3 Lymph # (Auto) 0.63 L [place] # (Auto) 2.0 H Eos # (Auto) 0.1 Baso # (Auto) 0.1 Abs Immat Gran (auto) 0.25 H Absolute Neuts (auto) 15.4 H Absolute Nucleated RBC 0.000 Nucleated RBC % 0.0 Sodium 134 L Potassium 3.1 L Chloride 99 Carbon Dioxide 19 L Anion Gap 16 H BUN 13 Creatinine 1.19 H Estim Creat Clear Calc 48 Estimated GFR 58 L Glucose 112 H Lactic Acid 2.0 Calcium 9.6 Magnesium Total Bilirubin 1.3 AST 32 ALT 26 Alkaline Phosphatase 68 Total Creatine Kinase 40 Troponin I < 0.012 Total Protein 7.0 Albumin 4.3 Lipase 34 Urine Color Yellow Urine Appearance Cloudy H Urine pH 7.0 Ur Specific [place] 1.016 Urine Protein 2+ H Urine Glucose (UA) Negative Urine Ketones 3+ H Ur Blood (Man) Trace Urine Nitrate Positive H Urine Bilirubin Negative Urine Urobilinogen 1.0 Add Ur Microanalysis Reviewed Leukocyte Esterase Rfl 2+ H Urine RBC 0-2 Urine WBC 21-50 H Ur Squamous Epith Cells Few Urine Bacteria 4+ H Urine Casts 0-2 Urine Mucus Present Urine Yeast (Budding) Present H POC Urine HCG, Qual 12/05/24 12/06/24 22:06 06:27 WBC 14.4 H RBC 3.81 L Hgb 10.9 L Hct 32.4 L MCV 85.0 MCH 28.6 MCHC 33.6 RDW 12.0 Plt Count 147 L MPV 11.9 H Immature Gran % (Auto) 1.1 H Neut % (Auto) 82.6 H Lymph % (Auto) 5.6 L [place] % (Auto) 10.5 H Eos % (Auto) 0.0 Baso % (Auto) 0.2 Lymph # (Auto) 0.80 L [place] # (Auto) 1.5 H Eos # (Auto) 0.0 Baso # (Auto) 0.0 Abs Immat Gran (auto) 0.16 H Absolute Neuts (auto) 11.9 H Absolute Nucleated RBC 0.000 Nucleated RBC % 0.0 Sodium 137 Potassium 3.4 Chloride 107 Carbon Dioxide 19 L Anion Gap 11 BUN 11 Creatinine 0.91 Estim Creat Clear Calc 62 Estimated GFR > 60 Glucose 117 H Lactic Acid Calcium 8.4 Magnesium 2.0 Total Bilirubin AST ALT Alkaline Phosphatase Total Creatine Kinase Troponin I Total Protein Albumin Lipase Urine Color Urine Appearance Urine pH Ur Specific [place] Urine Protein Urine Glucose (UA) Urine Ketones Ur Blood (Man) Urine Nitrate Urine Bilirubin Urine Urobilinogen Add Ur Microanalysis Leukocyte Esterase Rfl Urine RBC Urine WBC Ur Squamous Epith Cells Urine Bacteria Urine Casts Urine Mucus Urine Yeast (Budding) POC Urine HCG, Qual Negative Quality VTE Prophylaxis VTE prophylaxis: mechanical ordered
[2024-12-06] MEDS: POTASSIUM CHLORIDE 20 MEQ PACKET (FOR LIQUID) 40 MEQ PO (15:50)
[2024-12-06] MEDS: KETOROLAC 15 MG/ML VIAL (*BKC) IV PUSH (21:21)
[2024-12-06] MEDS: hydrOXYzine pamoate 25 MG CAPSULE PO (23:08)
[2024-12-06] MEDS: LORATADINE 10 MG TABLET PO (23:08)
[2024-12-07 04:25] VITALS: BP 105/48; PULSE 111; RESP 20; TEMP 37.3; O2SAT 96
[2024-12-07] MEDS: KETOROLAC 15 MG/ML VIAL (*BKC) IV PUSH ×2 (04:42→09:25)
[2024-12-07 06:02] LABS: Hematocrit 30.1 % (37.0-47.0); Immature Platelet Fraction Pct 5.6 % (0.9-11.2); Mean Corpuscular HGB Conc 33.2 g/dl (32-36); Mean Corpuscular Hemoglobin 28.4 pg (26-34); Mean Corpuscular Volume 85.5 fl (80-100); Mean Platelet Volume 11.9 fl (7.4-10.4); Platelet Count Result 137 k/mm3 (150-375); Red Blood Count 3.52 M/mm3 (4.2-5.4); Red Cell Distribution Width 12.2 % (11.5-14.5); White Blood Count 6.5 K/mm3 (4.5-10.0)
[2024-12-07 06:09] LABS: Albumin Level 3.2 g/dL (3.5-5.1); Anion Gap 9 mmol/L (4-12); Blood Urea Nitrogen 6 mg/dL (7-17); Calcium 8.2 mg/dL (8.4-10.2); Carbon Dioxide 20 mmol/L (22-30); Chloride 105 mmol/L (98-107); Estimated CRCL calculation 67 ml/min; Estimated Glomerular Filt Rate > 60; Glucose 90 mg/dL (65-110); Phosphorus 2.4 mg/dL (2.5-4.5); Potassium 3.3 mmol/L (3.4-5.0); Sodium 134 mmol/L (137-145)
[2024-12-07] MEDS: POTASSIUM CHLORIDE 20 MEQ PACKET (FOR LIQUID) 40 MEQ PO (09:25)
[2024-12-07] MEDS: LORATADINE 10 MG TABLET PO (09:25)
[2024-12-07] MEDS: cefTRIAXone 2 GM/NS 100 ML 2 GM/100 ML BAG IVPB (09:26)
[2024-12-07 09:45] VITALS: TEMP 37.3
--- NOTE | 2024-12-07 11:31 | P.PNIM_ITS ---
Progress Note: A&P Assessment and Plan (1) Sepsis: Qualifiers: Sepsis type: Escherichia coli Sepsis acute organ dysfunction status: with acute organ dysfunction Acute renal failure type: unspecified Severe sepsis shock status: without septic shock Code(s): A41.9 - Sepsis, unspecified organism Status: Acute (2) Pyelonephritis: Code(s): N12 - Tubulo-interstitial nephritis, not specified as acute or chronic Status: Acute (3) Acute kidney injury: Code(s): N17.9 - Acute kidney failure, unspecified Status: Acute (4) Dehydration: Code(s): E86.0 - Dehydration Status: Acute Plan sepsis secondary to UTI/ pyelonephritis with KELLY continue with Rocephin 2 gram reviewed previous U/C ecoli corea sensitive follow culture result positve for Ecoli IVF sepsis protocol Pyelonephritis plan as above Kelly IVF Continue to monitor hypotension likely baseline IVF Continue to monitor hypokalemia replete as needed discharge plan: in 2 days pending culture results Subjective Date/time seen: 12/07/24 11:31 Interval history: per HPi: Narrative: This is a 19-year-old female with history of urinary tract infection, depression, anxiety, and ADHD who presented to the emergency department for evaluation of fever, dysuria, and other symptoms. She gives a 3 day history of diffuse mid to lower back ache, dysuria, nausea, vomiting, chills, and subjective fever. Initially she thought that she was perhaps constipated she took a laxative without benefit. Each day she has felt worse and worse and decided to come in today for evaluation. She denies cold and flu symptoms, diarrhea, melena, hematochezia, hematuria, cough, and shortness of breath. In the ED: Vital signs on arrival include a temperature of 100.2° F, blood pressure 95/55, pulse 113, respiratory rate 20, SpO2 100% on room air. Labs were significant for a WBC count of 18.4, sodium 134, potassium 3.1, BUN 13, creatinine 1.19, anion gap 16. Urinalysis was positive for nitrates, 2+ leukocyte esterase, 3+ ketones, 4+ bacteria, and [address] of the abdomen and pelvis showed bilateral pyelonephritis, more on the left side. She was given ceftriaxone 1 g, potassium chloride 40 mEq, and 2 L of crystalloids. She is being admitted in this setting for further treatment. 12/06/24 Patient was seen and examined at bedside. she is feeling better. still has fever. nausea is better. back pain is better. has dysuria. continue treatment for pyelonephritis. follow culture results. 12/07/24 patient waas seen and examined at bedside. she is feeling fine. denies any chest pain, SOB. abd pain improving. U/C positive for Ecoli. continue ROcephin Review of Systems Review of Systems: 12 systems were reviewed and are negativ e except for as per HPI. Exam Narrative: General: Mildly ill-appearing female sitting up in bed in no acute distress. Weight: 52.2 kg. BMI: 22.5. HEENT: PERRL, EOMI. Sclera anicteric. Tacky mucous membranes. Neck: Supple. Respiratory: Lungs are clear to auscultation bilaterally. Cardiovascular: Regular rate and rhythm with S1-S2. Gastrointestinal: Abdomen is soft, nontender, and nondistended with positive bowel sounds. No CVA tenderness. Skin: Warm and dry. Extremities: No cyanosis, clubbing, or edema. Radial and pedal pulses intact. Neurological: Alert. Cranial nerves 2-12 are grossly intact. No gross focal deficits to casual conversation. Psychiatric: Pleasant and cooperative with normal mood and affect. Judgment and insight intact. Objective Data Vital Signs Vital Signs: Vital Signs - 24 hr 12/06/24 13:36 12/06/24 14:00 12/06/24 20:17 Temperature 99.2 F 99.0 F Pulse Rate 83 Respiratory Rate 22 H Blood Pressure 102/72 Pulse Oximetry 100 Oxygen Delivery Room Air 12/06/24 20:40 12/06/24 22:20 12/07/24 04:25 Temperature 103.1 F H 99.1 F 99.2 F Pulse Rate 90 111 H Respiratory Rate 20 20 Blood Pressure 109/61 105/48 L Pulse Oximetry 100 96 Oxygen Delivery 12/07/24 09:25 12/07/24 09:45 Temperature 99.1 F Pulse Rate Respiratory Rate Blood Pressure Pulse Oximetry Oxygen Delivery Room Air Intake/Output Intake/Output: Intake & Output 12/04/24 12/05/24 12/06/24 12/07/24 23:59 23:59 23:59 23:59 Intake Total 2050 2160 400 Balance 2050 2160 400 Meds/Results Medications: Active Medications Generic Name Dose Route Start Last Admin Trade Name Freq PRN Reason Stop Dose Admin Acetaminophen 650 mg 12/06/24 00:45 12/06/24 13:32 Acetaminophen 325 Mg Tablet PO 650 mg Q6H PRN Administration Mild Pain (1-3) or Fever Acetaminophen/Butalbital/Caffeine 1 tab 12/06/24 22:53 Acetaminophen/Butalbital/Caffeine 325-50-40 Mg Tablet (Fioricet) PO Q4H PRN Pain Rated 4-6 Calcium Carbonate 200 mg 12/06/24 09:55 12/06/24 13:15 Calcium Carbonate (Tums) 500 Mg (200 Mg Elemental) PO 200 mg Q6H PRN Administration Indigestion Hydroxyzine Pamoate 25 mg 12/06/24 20:59 12/06/24 23:08 Hydroxyzine Pamoate 25 Mg Capsule PO 25 mg HS PRN Administration anxiety or sleep Ceftriaxone Sodium 2 gm in 100 mls @ 200 mls/hr 12/06/24 09:00 12/07/24 09:55 Rocephin 2 Gm/Ns 100 Ml IVPB Infused Q24H KATHI Infusion Ketorolac Tromethamine 15 mg 12/06/24 21:00 12/07/24 09:25 Ketorolac 15 Mg/Ml Vial (*Bkc) IV PUSH 15 mg Q6H KATHI Administration Loratadine 10 mg 12/06/24 22:55 12/07/24 09:25 Loratadine 10 Mg Tablet PO 10 mg QAM KATHI Administration Ondansetron HCl 4 mg 12/06/24 09:55 12/06/24 20:17 Ondansetron Inj 4 Mg/2 Ml Vial IV PUSH 4 mg Q6H PRN Administration Nausea And Vomiting Propranolol HCl 10 mg 12/06/24 20:59 Propranolol Hcl 10 Mg Tablet PO TID PRN anxiety Radiology Results: ITS Impressions Chest X-Ray 12/05/24 21:50 IMPRESSION: No acute cardiopulmonary pathology. Abdomen/Pelvis CT 12/05/24 23:59 IMPRESSION: 1. Bilateral pyelonephritis more on the left side. Follow-up and clinical correlation advised. 2. No evidence of appendicitis, diverticulitis or intestinal obstruction. Labs Labs: Laboratory Results - last 24 hr 12/07/24 05:43 WBC 6.5 RBC 3.52 L Hgb 10.0 L Hct 30.1 L MCV 85.5 MCH 28.4 MCHC 33.2 RDW 12.2 Plt Count 137 L MPV 11.9 H % Immature Plt Fraction 5.6 Sodium 134 L Potassium 3.3 L Chloride 105 Carbon Dioxide 20 L Anion Gap 9 BUN 6 L D Creatinine 0.84 Estim Creat Clear Calc 67 Estimated GFR > 60 Glucose 90 Calcium 8.2 L Phosphorus 2.4 L Albumin 3.2 L Quality VTE Prophylaxis VTE prophylaxis: mechanical ordered
[2024-12-07 13:36] VITALS: BP 109/68; PULSE 82; RESP 14; TEMP 36.8; O2SAT 100
[2024-12-07] MEDS: IBUPROFEN 400 MG TABLET PO (15:21)
[2024-12-07 16:00] VITALS: BP 113/78; PULSE 112; RESP 22; TEMP 38.5; O2SAT 100
[2024-12-07] MEDS: hydrOXYzine pamoate 25 MG CAPSULE PO (17:13)
[2024-12-07 20:00] VITALS: PULSE 82; RESP 18; O2SAT 100
[2024-12-07] MEDS: ACETAMINOPHEN/BUTALBITAL/CAFFEINE 325-50-40 MG TABLET (FIORICET) 1 TAB PO (21:34)
[2024-12-07 22:00] VITALS: BP 107/63; PULSE 82; RESP 18; TEMP 36.9; O2SAT 100
[2024-12-07] MEDS: hydrOXYzine pamoate 25 MG CAPSULE 50 MG PO (23:25)
[2024-12-08 06:00] VITALS: BP 111/69; PULSE 79; RESP 20; TEMP 37.1; O2SAT 99
[2024-12-08 06:25] LABS: Hemoglobin 11.3 g/dL (12.0-15.0); Mean Corpuscular HGB Conc 32.3 g/dl (32-36); Mean Corpuscular Hemoglobin 28.2 pg (26-34); Mean Corpuscular Volume 87.3 fl (80-100); Mean Platelet Volume 11.6 fl (7.4-10.4); Platelet Count Result 147 k/mm3 (150-375); Red Blood Count 4.01 M/mm3 (4.2-5.4); Red Cell Distribution Width 12.4 % (11.5-14.5); White Blood Count 3.4 K/mm3 (4.5-10.0)
[2024-12-08 06:36] LABS: Anion Gap 8 mmol/L (4-12); Blood Urea Nitrogen 11 mg/dL (7-17); Calcium 8.7 mg/dL (8.4-10.2); Carbon Dioxide 27 mmol/L (22-30); Chloride 107 mmol/L (98-107); Estimated CRCL calculation 71 ml/min; Estimated Glomerular Filt Rate > 60; Glucose 119 mg/dL (65-110); Potassium 3.8 mmol/L (3.4-5.0); Sodium 142 mmol/L (137-145)
[2024-12-08 08:00] VITALS: O2SAT 99
[2024-12-08] MEDS: cefTRIAXone 2 GM/NS 100 ML 2 GM/100 ML BAG IVPB (08:32)
[2024-12-08] MEDS: LORATADINE 10 MG TABLET PO (08:32)
--- NOTE | 2024-12-08 10:36 | PM.DS ---
DS: Admitting Diagnosis Discharge Date 12/08/24 Admitting Diagnosis UTI/ Pyelonephritis DS: Discharge Diagnosis Discharge Diagnosis (1) Sepsis: Qualifiers: Sepsis type: Escherichia coli Sepsis acute organ dysfunction status: with acute organ dysfunction Acute renal failure type: unspecified Severe sepsis shock status: without septic shock Code(s): A41.9 - Sepsis, unspecified organism Status: Acute (2) Pyelonephritis: Code(s): N12 - Tubulo-interstitial nephritis, not specified as acute or chronic Status: Acute (3) Acute kidney injury: Code(s): N17.9 - Acute kidney failure, unspecified Status: Acute (4) Dehydration: Code(s): E86.0 - Dehydration Status: Acute Plan sepsis secondary to UTI/ pyelonephritis with NIKOLE continue with Augmentin 10 more days reviewed previous U/C ecoli corea sensitive follow culture result positve for Ecoli Pyelonephritis plan as above Nikole Improved Continue to monitor hypotension improved Continue to monitor hypokalemia replete as needed discharge plan: in 2 days pending culture results DS: Summary Hospital Course Hospital Course: This is a 19-year-old female with history of urinary tract infection, depression, anxiety, and ADHD who presented to the emergency department for evaluation of fever, dysuria, and other symptoms. She gives a 3 day history of diffuse mid to lower back ache, dysuria, nausea, vomiting, chills, and subjective fever. Initially she thought that she was perhaps constipated she took a laxative without benefit. Each day she has felt worse and worse and decided to come in today for evaluation. She denies cold and flu symptoms, diarrhea, melena, hematochezia, hematuria, cough, and shortness of breath. In the ED: Vital signs on arrival include a temperature of 100.2° F, blood pressure 95/55, pulse 113, respiratory rate 20, SpO2 100% on room air. Labs were significant for a WBC count of 18.4, sodium 134, potassium 3.1, BUN 13, creatinine 1.19, anion gap 16. Urinalysis was positive for nitrates, 2+ leukocyte esterase, 3+ ketones, 4+ bacteria, and [address] of the abdomen and pelvis showed bilateral pyelonephritis, more on the left side. She was given ceftriaxone 1 g, potassium chloride 40 mEq, and 2 L of crystalloids. She is being admitted in this setting for further treatment. 12/06/24 Patient was seen and examined at bedside. she is feeling better. still has fever. nausea is better. back pain is better. has dysuria. continue treatment for pyelonephritis. follow culture results. 12/08/24 patient waas seen and examined at bedside. she is feeling fine. denies any chest pain, SOB. abd pain.. U/C positive for Ecoli corea sensitive. will discharg epatient on Augmentin for 10 more days Time Spent with Patient Time attestation: Total time spent providing and/or coordinating discharge services: Exam Narrative: General: Mildly ill-appearing female sitting up in bed in no acute distress. Weight: 52.2 kg. BMI: 22.5. HEENT: PERRL, EOMI. Sclera anicteric. Tacky mucous membranes. Neck: Supple. Respiratory: Lungs are clear to auscultation bilaterally. Cardiovascular: Regular rate and rhythm with S1-S2. Gastrointestinal: Abdomen is soft, nontender, and nondistended with positive bowel sounds. No CVA tenderness. Skin: Warm and dry. Extremities: No cyanosis, clubbing, or edema. Radial and pedal pulses intact. Neurological: Alert. Cranial nerves 2-12 are grossly intact. No gross focal deficits to casual conversation. Psychiatric: Pleasant and cooperative with normal mood and affect. Judgment and insight intact. DS: Data Data Completed and Pending Labs on day of discharge: Labs from last 24 hours 12/08/24 05:43 WBC 3.4 L RBC 4.01 L Hgb 11.3 L Hct 35.0 L MCV 87.3 MCH 28.2 MCHC 32.3 RDW 12.4 Plt Count 147 L MPV 11.6 H Sodium 142 Potassium 3.8 Chloride 107 Carbon Dioxide 27 Anion Gap 8 BUN 11 D Creatinine 0.79 Estim Creat Clear Calc 71 Estimated GFR > 60 Glucose 119 H Calcium 8.7 Preliminary micro results at discharge 12/05/24 22:28 Blood Culture - Preliminary Blood 12/05/24 22:29 Blood Culture - Preliminary Blood Discharge Plan Discharge Attending physician on discharge: Tim Cazares Discharging Clinician: Tim Cazares Patient Disposition: Home Activity: as tolerated Diet: as tolerated Patient Instructions: Antibiotic Form Patient Language: Urdu Stand Alone Forms: General Discharge Information, Work/School Release IP Follow-up/Referrals: PHYSICIAN,WATER MAINTENANCE SUPERVISOR [Primary Care Provider] - (follow with [facility] in one week) Discharge Medications: New acetaminophen 325 mg Tablet 650 mg PO Q6H PRN (Reason: Mild Pain (1-3) Or Fever) Qty: 30 0RF amoxicillin-pot clavulanate 875-125 mg tablet 1 tablet PO Q12H Qty: 20 0RF Continued Aleyda 14 mcg/24 hrs (3 yrs) 13.5 mg intrauterine device 1 device intrauterine ONCE Rx Instructions: as a single dose propranolol 10 mg tablet 10 mg PO TID PRN (Reason: anxiety) hydroxyzine pamoate 25 mg capsule 25 mg PO HS PRN (Reason: anxiety or sleep) dextroamphetamine-amphetamine 15 mg tablet 15 mg PO .COMPLEX Rx Instructions: 15 mg orally 15mg in am, 7.5mg in afternoon; Date of admission: 12/07/24 12:02 Primary Care Provider: PHYSICIAN,WATER MAINTENANCE SUPERVISOR Admitting Provider: Sharri Diego Attending physician on admission: Tim Cazares Condition: Stable Care Plan Goals: please follow with PCP in one week continue Augmentin for 10 days Quality VTE Prophylaxis VTE prophylaxis: mechanical ordered
== END 2024-12-08 11:00 | disposition home or self-care (01) | DRG 872 ==
LOC: ANHED 12-06 00:52 → ANH3MEDSUR 12-06 04:16
PROVIDERS: Physician Assistant; Student in an Organized Health Care Education/Training Program; Admitting Provider Internal Medicine; Emergency Provider Registered Nurse; Visit Provider Internal Medicine
DX: A41.9 Sepsis, unspecified organism (principal); N12 Tubulo-interstitial nephritis, not specified as acute or chronic; N17.9 Acute kidney failure, unspecified; I95.9 Hypotension, unspecified; E86.0 Dehydration; E87.6 Hypokalemia; B96.20 Unspecified Escherichia coli [E. coli] as the cause of diseases classified elsewhere; F32.A Depression, unspecified; F90.9 Attention-deficit hyperactivity disorder, unspecified type; F41.9 Anxiety disorder, unspecified
CPT/HCPCS: 36415; 71046; 74177; 80048; 80053; 80069; 81001; 81025; 82550; 83605; 83690; 83735; 84484; 85025; 85027; 85055; 87040; 87086; 87186; 93005; 96361; 96365; 99285; A9270; G0378; J0696; J1200; J1885; J2405; J2765; J7030; J7042; Q9967

== ENCOUNTER 2024-12-31 08:01 | Emergency (ER) | payer OTHER, SELFPAY ==
[2024-12-31 08:12] VITALS: BP 100/77; PULSE 98; RESP 12; TEMP 36.6; O2SAT 100
--- NOTE | 2024-12-31 08:13 | ED.FEMALEGU ---
HPI - Female Genitourinary General Chief complaint: Abdominal Pain Stated complaint: Right Side Pain Time Seen by Provider: 12/31/24 08:26 Source: patient and RN notes reviewed Mode of arrival: ambulatory Limitations: no limitations History of Present Illness HPI Narrative: 19-year-old female presents with concern for abdominal pain. She reports 2 day history of right-sided abdominal pain, right flank pain, dysuria. Reports nausea. She denies vomiting. She reports she was hospitalized almost a month ago for septic kidney infection. MD elicited complaint: UTI Related Data Home Medications ?Medication ?Instructions ?Recorded ?Confirmed ?Last Taken ?Type levonorgestrel 14 mcg/24 hr (up to 1 device intrauterine ONCE 03/22/22 12/06/24 Unknown History 3 yrs) 13.5 mg intrauterine device (Aleyda) dextroamphetamine-amphetamine 15 15 mg PO .COMPLEX 12/06/24 12/06/24 Unknown History mg tablet hydroxyzine pamoate 25 mg capsule 25 mg PO HS PRN anxiety or sleep 12/06/24 12/06/24 Unknown History propranolol 10 mg tablet 10 mg PO TID PRN anxiety 12/06/24 12/06/24 Unknown History Allergies Allergy/AdvReac Type Severity Reaction Status Date / Time clonazepam AdvReac Intermediate suicidal Verified 12/31/24 08:17 thoughts codeine AdvReac Intermediate Headache Verified 12/31/24 08:17 Penicillins AdvReac Rash Verified 12/31/24 08:17 Review of Systems Review of Systems: CONSTITUTIONAL: Reports malaise. Denies chills, sweats, or fever. CARDIOVASCULAR: Denies chest pain, palpitations, or edema. RESPIRATORY: Denies cough or dyspnea. GASTROINTESTINAL: Reports right lower abdominal pain, nausea. Denies vomiting, diarrhea GENITOURINARY: Reports dysuria. Reports right flank pain. Denies hematuria. SKIN: Denies rash or itching. MUSCULOSKELETAL: Reports right low back pain. Denies myalgia. All systems reviewed & are unremarkable except as noted in HPI and below PMFSH Past Medical History Medical History (Updated 12/31/24 @ 08:33 by Manasa Adam NP) ADHD Depression Anxiety Surgical History Surgical History History of gynecological procedure (03/22/22) Aleyda iud removal and insertion Family History Family History Grandparent Breast cancer paternal grandmother Social History Social History (Updated 12/06/24 @ 04:52 by Maliha Velez PA-C) Social History: Surrogate medical decision maker: Kortney James, mother. Code status: Full code. Smoking status: Current every day smoker Tobacco type: e-cigarettes/vaping Alcohol intake: unknown Substance use: unknown Substance use type: marijuana Do You Feel Safe in your Home?: Yes Lack of Transportation: No Lack of Food: Never True Current Housing: I Have Housing Concerned About Future Housing: No Difficulty Paying Gas/Electric Bills: No Difficulty Paying for Meds: No Currently Unemployed: No Education: Decline to Answer Difficulty w/ Childcare or Family Care: Decline to Answer Additional living arrangements comments: Lives in the dorms during the school year, currently staying with mother. Occupation/Education: occupation Additional occupation/education comments: Student at [employer] studying [place]. Works at [employer]. Sexual Orientation (if Verbalized by the Patient): Bisexual Spiritual care concerns: No Comments At time of signature, agree with nursing past medical, surgical, social and family history. There is no relevant family history pertinent to the presenting complaint Exam Narrative: GENERAL: Well-appearing, well-nourished, and in no acute distress. HEAD: Normocephalic. EYES: PERRLA, conjunctivae clear. NECK: Supple. No lymphadenopathy CHEST: Clear to auscultation. No respiratory distress. HEART: Regular rate and rhythm. ABDOMEN: Soft, suprapubic tenderness, otherwise nontender upon palpation, nondistended, normal active bowel sounds, no palpable or pulsatile masses, no guarding. Right CVA tenderness SKIN: Warm, dry, no rash. NEURO: Alert and oriented x3. PSYCH: Normal mood and affect Course Course Emergency Course: Patient was advised that if symptoms do not improve or if they worsen she needs to go to the emergency room. Patient is aware of diagnosis, understands and agrees to treatment plan. Anticipatory guidance given. Patient agrees to follow-up as directed and is aware of reasons to seek care at the emergency department. Portions of this record may have been created with voice recognition software Level of Care: Express Care Visit Vital Signs Vital signs: Reviewed. MDM - Female Genitourinary MDM Narrative Medical decision making narrative: Exam findings and UA show no acute concerns or changes; patient is non-toxic appearing and is in no distress. Patient is appropriate for outpatient treatment and follow-up. Differential Diagnosis Differential diagnosis: Likely urinary tract infection and cystitis Critical Care Time Critical Care Time Critical Care Time: No Discharge Plan Discharge Clinical Impression: Urinary tract infection Patient Disposition: Home Condition: Stable Instructions: Antibiotic Form, Urinary Tract Infection in Women (ED) Additional Instructions: We will send a urine culture to the lab; if the culture identifies an organism that the prescribed antibiotic will not treat, you will receive a phone call from an urgent care staff member and an appropriate antibiotic will be prescribed. -Your symptoms should begin to improve within a day of starting antibiotics. But you should finish all the antibiotic pills you get. Otherwise your infection might come back. -Also recommend: increase water intake. Tylenol/ibuprofen as needed for pain or fever -Follow-up with your primary care provider for urine recheck or seek ER visit if condition worsens with high fever, nausea, vomiting and severe back pain. Patient Language: B[place] Prescriptions: New sulfamethoxazole-trimethoprim 800-160 mg tablet 1 tablet PO Q12H 7 Days Qty: 14 0RF ondansetron 4 mg tablet,disintegrating 4 mg PO Q8H PRN (Reason: nausea and vomiting) Qty: 10 0RF No Action Aleyda 14 mcg/24 hrs (3 yrs) 13.5 mg intrauterine device 1 device intrauterine ONCE Rx Instructions: as a single dose propranolol 10 mg tablet 10 mg PO TID PRN (Reason: anxiety) hydroxyzine pamoate 25 mg capsule 25 mg PO HS PRN (Reason: anxiety or sleep) dextroamphetamine-amphetamine 15 mg tablet 15 mg PO .COMPLEX Rx Instructions: 15 mg orally 15mg in am, 7.5mg in afternoon; acetaminophen 325 mg Tablet 650 mg PO Q6H PRN (Reason: Mild Pain (1-3) Or Fever) Qty: 30 0RF Follow-up/Referrals: PHYSICIAN,MAINTENANCE MANAGER [Primary Care Provider] - Stand Alone Forms: Work/School Release IP Time of Disposition: 08:35
[2024-12-31 08:26] LABS: EDUAAPPEAR Cloudy; EDUABILI Negative (Negative); EDUABLOOD Trace (Negative); EDUACOLOR1 Yellow; EDUAGLUCOSE Negative (Negative); EDUAKETONE Negative (Negative); EDUALEUKO 1+ (Negative); EDUANITRATE Positive (Negative); EDUAPROTEIN 1+ (Negative); EDUASPGRAVITY 1.025; EDUAUROBILI 0.2
== END 2024-12-31 08:42 | disposition home or self-care (01) ==
PROVIDERS: Emergency Provider Nurse Practitioner
DX: N39.0 Urinary tract infection, site not specified (principal); F17.290 Nicotine dependence, other tobacco product, uncomplicated; F90.9 Attention-deficit hyperactivity disorder, unspecified type; F41.9 Anxiety disorder, unspecified
CPT/HCPCS: 81003; 87086; 87186; 99213; G0463

== ENCOUNTER 2025-01-02 18:02 | Emergency (ER) | payer OTHER, SELFPAY ==
[2025-01-02 18:30] VITALS: BP 106/62; PULSE 94; RESP 16; TEMP 37.4; O2SAT 97
--- NOTE | 2025-01-02 18:46 | ED_ITS ---
HPI - Female Genitourinary General Chief complaint: Urogenital-Female Stated complaint: Abdominal Pain Time Seen by Provider: 01/02/25 18:33 Source: patient, RN notes reviewed and old records reviewed Mode of arrival: ambulatory Limitations: no limitations History of Present Illness HPI Narrative: Patient presents today complaining of a dysuria, right flank pain radiating to the right mid abdomen. She initially presented to [facility] 2 days ago with similar symptoms and was diagnosed with the UTI and placed on Bactrim. Urine culture grew back E coli for which she was susceptible. Patient states the back pain has resolved but she noted hematuria today with wiping only. Denies any current fever, nausea, vomiting, but wanted to come in for further evaluation. She was hospitalized last month for bilateral pyelonephritis. Related Data Home Medications ?Medication ?Instructions ?Recorded ?Confirmed ?Last Taken ?Type levonorgestrel 14 mcg/24 hr (up to 1 device intrauterine ONCE 03/22/22 01/02/25 Unknown History 3 yrs) 13.5 mg intrauterine device (Aleyda) dextroamphetamine-amphetamine 15 15 mg PO .COMPLEX 12/06/24 01/02/25 Unknown History mg tablet hydroxyzine pamoate 25 mg capsule 25 mg PO HS PRN anxiety or sleep 12/06/24 01/02/25 Unknown History propranolol 10 mg tablet 10 mg PO TID PRN anxiety 12/06/24 01/02/25 Unknown History Allergies Allergy/AdvReac Type Severity Reaction Status Date / Time clonazepam AdvReac Intermediate suicidal Verified 01/02/25 19:13 thoughts codeine AdvReac Intermediate Headache Verified 01/02/25 19:13 Penicillins AdvReac Rash Verified 01/02/25 19:13 Review of Systems Review of Systems: CONSTITUTIONAL: Denies body aches, fever, chills, or sweats. EYES: Denies visual changes, redness, or discharge. ENT: Denies rhinorrhea, congestion, sore throat, or otalgia. CARDIOVASCULAR: Denies chest pain, palpitations, or edema. RESPIRATORY: Denies cough or dyspnea. GASTROINTESTINAL: Denies nausea, vomiting, or diarrhea.+ abdominal pain GENITOURINARY: + dysuria, hematuria SKIN: Denies rash, itching, or wounds. MUSCULOSKELETAL: Denies back pain, joint pain, or myalgia. NEUROLOGIC: Denies headache, numbness, tingling, or weakness. PSYCH: Denies depression or anxiety. PMFSH Past Medical History Medical History ADHD Depression Anxiety Surgical History Surgical History History of gynecological procedure (03/22/22) Aleyda iud removal and insertion Family History Family History Grandparent Breast cancer paternal grandmother Social History Social History Social History: Surrogate medical decision maker: Kortney James, mother. Code status: Full code. Smoking status: Current every day smoker Tobacco type: e-cigarettes/vaping Alcohol intake: unknown Substance use: unknown Substance use type: marijuana Do You Feel Safe in your Home?: Yes Lack of Transportation: No Lack of Food: Never True Current Housing: I Have Housing Concerned About Future Housing: No Difficulty Paying Gas/Electric Bills: No Difficulty Paying for Meds: No Currently Unemployed: No Education: Decline to Answer Difficulty w/ Childcare or Family Care: Decline to Answer Additional living arrangements comments: Lives in the dorms during the school year, currently staying with mother. 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 Works at [employer]. Sexual Orientation (if Verbalized by the Patient): Bisexual Spiritual care concerns: No Comments At time of signature, I have reviewed and agree with nursing past medical, surgical, social and family history unless otherwise noted. Please see nursing chart for further information. There is no relevant family history pertinent to the presenting complaint Exam Narrative: GENERAL: Well-appearing, well-nourished, and in no acute distress. HEAD: Normocephalic, atraumatic. EYES: EOMI. No redness or drainage. Conjunctivae normal. ENT: Mucous membranes pink and moist. NECK: Normal AROM. CHEST: No respiratory distress. Clear to auscultation. HEART: Regular rate and rhythm. No murmur appreciated. ABDOMEN: Soft, nondistended, normal active bowel sounds. Mild CVA tenderness. Mild tenderness to the right mid abdomen without rebound or guarding. EXTREMITIES: Normal range of motion. No edema. SKIN: Warm, dry, no rash. Capillary refill normal. Normal skin turgor. NEURO: No focal deficits. Alert and oriented x3. Gait steady. PSYCH: Normal affect. No signs of depression or anxiety. Course Course Level of Care: Express Care Visit Vital Signs Vital signs: Vital Signs Temperature 99.4 F 01/02/25 18:30 Pulse Rate 94 01/02/25 18:30 Respiratory Rate 16 01/02/25 18:30 Blood Pressure 106/62 01/02/25 18:30 Pulse Oximetry 97 01/02/25 18:30 Oxygen Delivery Room Air 01/02/25 18:30 Temperature 99.4 F 01/02/25 18:30 Pulse Rate 94 01/02/25 18:30 Respiratory Rate 16 01/02/25 18:30 Blood Pressure 106/62 01/02/25 18:30 Pulse Oximetry 97 01/02/25 18:30 Oxygen Delivery Room Air 01/02/25 18:30 Reviewed MDM - Female Genitourinary MDM Narrative Medical decision making narrative: Patient likely has some mild pyelonephritis which has improved with Bactrim, but will switch her to Augmentin. States she has taken Augmentin, as this is what she was discharged home on last month after pyelonephritis. Strict ED precautions given. Differential Diagnosis Differential diagnosis: Likely urinary tract infection, cystitis and other (Pyelonephritis) Critical Care Time Critical Care Time Critical Care Time: No Discharge Plan Discharge Clinical Impression: Pyelonephritis Patient Disposition: Home Condition: Stable Instructions: Antibiotic Form, Kidney Infection (ED) Additional Instructions: Please take the Bactrim and start Augmentin and take as directed. Drink plenty of water. As discussed, if your symptoms do not improve it within 48 hours or worsen in any way, please go to the ER immediately for further evaluation. Patient Language: Ecuadorean Prescriptions: New amoxicillin-pot clavulanate 875-125 mg tablet 1 tablet PO Q12H 7 Days Qty: 14 0RF No Action sulfamethoxazole-trimethoprim 800-160 mg tablet 1 tablet PO Q12H 7 Days Qty: 14 0RF ondansetron 4 mg tablet,disintegrating 4 mg PO Q8H PRN (Reason: nausea and vomiting) Qty: 10 0RF Aleyda 14 mcg/24 hrs (3 yrs) 13.5 mg intrauterine device 1 device intrauterine ONCE Rx Instructions: as a single dose propranolol 10 mg tablet 10 mg PO TID PRN (Reason: anxiety) hydroxyzine pamoate 25 mg capsule 25 mg PO HS PRN (Reason: anxiety or sleep) dextroamphetamine-amphetamine 15 mg tablet 15 mg PO .COMPLEX Rx Instructions: 15 mg orally 15mg in am, 7.5mg in afternoon; acetaminophen 325 mg Tablet 650 mg PO Q6H PRN (Reason: Mild Pain (1-3) Or Fever) Qty: 30 0RF Follow-up/Referrals: PHYSICIAN,ESCROW SECRETARY [Primary Care Provider] - Time of Disposition: 18:53
== END 2025-01-02 18:56 | disposition home or self-care (01) ==
PROVIDERS: Emergency Provider Nurse Practitioner
DX: N12 Tubulo-interstitial nephritis, not specified as acute or chronic (principal); F17.290 Nicotine dependence, other tobacco product, uncomplicated; F90.9 Attention-deficit hyperactivity disorder, unspecified type; F41.9 Anxiety disorder, unspecified
CPT/HCPCS: 99213; G0463